=== PATIENT | female | born 1960 | race Caucasian/White ===

== ENCOUNTER 2021-04-09 12:02 | Inpatient (IN) | payer OTHER ==
[2021-04-09] MEDS ORDERED: ALBUTEROL HFA INHALER INHALATION STA (12:18)
--- NOTE | 2021-04-09 12:24 | ED ---
General Adult HPI - General Chief complaint: Shortness of Breath Stated complaint: low o2 Time Seen by Provider: 04/09/21 12:09 Source: patient, RN notes reviewed Mode of arrival: ambulatory Limitations: no limitations - History of Present Illness Initial comments: Patient is a pleasant 60-year-old female presenting to the emergency department with concerns for cold-like symptoms. Onset of symptoms was just 4 days ago. Patient complains of only mild symptoms. Patient did go to primary care physician and also oxygen reportedly was 59 and patient had purplish discoloration. Patient reportedly refused EMS transfer. Patient does have mild cough. Patient feels only minimally short of breath with cough. No chest pain. Patient states her taste feels a little bit funny this morning. Patient has not been vaccinated. Patient has mild nasal congestion. No history of chronic lung problems. Patient does have a history of smoking less than 1 pack per day for 19 years. - Related Data Home Medications Medication Instructions Recorded Confirmed Furosemide [Lasix] 40 mg PO BID 04/09/21 04/09/21 Allergies Allergy/AdvReac Type Severity Reaction Status Date / Time No Known Allergies Allergy Verified 04/09/21 14:36 Review of Systems ROS Statement: Those systems with pertinent positive or pertinent negative responses have been documented in the HPI. ROS Other: All systems not noted in ROS Statement are negative. Constitutional: Reports: fever (Yesterday) Eyes: Denies: eye pain ENT: Denies: ear pain Respiratory: Reports: as per HPI, cough Cardiovascular: Denies: chest pain Endocrine: Reports: fatigue Gastrointestinal: Denies: abdominal pain Genitourinary: Denies: dysuria Musculoskeletal: Denies: back pain Skin: Denies: rash Neurological: Denies: weakness Past Medical History History of Any Multi-Drug Resistant Organisms: None Reported Past Surgical History: Section Past Psychological History: No Psychological Hx Reported Smoking Status: Never smoker Past Alcohol Use History: None Reported Past Drug Use History: None Reported General Exam Limitations: no limitations General appearance: alert Head exam: Present: normocephalic Eye exam: Present: normal appearance ENT exam: Present: normal oropharynx Neck exam: Present: normal inspection Respiratory exam: Present: wheezes (Mild expiratory) Cardiovascular Exam: Present: regular rate, normal rhythm GI/Abdominal exam: Present: soft. Absent: tenderness Extremities exam: Present: normal inspection Neurological exam: Present: alert Psychiatric exam: Present: normal affect, normal mood Skin exam: Present: normal color, cyanosis Course Vital Signs 04/09/21 04/09/21 12:07 12:17 Temperature 98.9 F Pulse Rate 83 Respiratory 24 Rate Blood Pressure 172/88 O2 Sat by Pulse 57 L 96 Oximetry EKG Findings - EKG Comments: EKG Findings:: Normal sinus rhythm rate 85. W[place] 142. QRS 84. QT 350. QTC 416. Right axis. Normal QRS. No acute ST change. Medical Decision Making - Medical Decision Making Patient reevaluated. Patient remains hypoxic when taken off oxygen. Otherwise color has significant improved. Patient updated on results and plan. Case was discussed with Dr. Ness, covering for Ava Mari, who will admit. Line Palletizer will be consult. Patient is not a candidate for monoclonal antibody secondary to hypoxia. - Lab Data Result diagrams: 04/09/21 12:21 04/09/21 12: Lab Results 04/09/21 04/09/21 04/09/21 Range/Units 12:21 12:21 12:21 WBC 8.3 (3.8-10.6) k/uL RBC 5.74 H (3.80-5.40) m/uL Hgb 16.1 H (11.4-16.0) gm/dL Hct 51.3 H (34.0-46.0) % MCV 89.4 (80.0-100.0) fL MCH 28.1 (25.0-35.0) pg MCHC 31.4 (31.0-37.0) g/dL RDW 17.0 H (11.5-15.5) % Plt Count 128 L (150-450) k/uL MPV 9.3 Neutrophils % 82 % Lymphocytes % 10 % Monocytes % 6 % Eosinophils % 1 % Basophils % 1 % Neutrophils # 6.9 (1.3-7.7) k/uL Lymphocytes # 0.8 L (1.0-4.8) k/uL Monocytes # 0.5 (0-1.0) k/uL Eosinophils # 0.1 (0-0.7) k/uL Basophils # 0.1 (0-0.2) k/uL Hypochromasia Moderate Anisocytosis Slight PT 11.3 (9.0-12.0) sec INR 1.1 (<1.2) APTT 22.9 (22.0-30.0) sec D-Dimer 2.54 H (<0.60) mg/L FEU Sodium (137-145) mmol/L Potassium (3.5-5.1) mmol/L Chloride (98-107) mmol/L Carbon Dioxide (22-30) mmol/L Anion Gap mmol/L BUN (7-17) mg/dL Creatinine (0.52-1.04) mg/dL Est GFR (CKD-EPI)AfAm (>60 ml/min/1.73 sqM) Est GFR (CKD-EPI)NonAf (>60 ml/min/1.73 sqM) Glucose (74-99) mg/dL Plasma Lactic Acid Jacob (0.7-2.0) mmol/L Calcium (8.4-10.2) mg/dL Total Bilirubin (0.2-1.3) mg/dL AST (14-36) U/L ALT (4-34) U/L Alkaline Phosphatase (38-126) U/L Troponin I (0.000-0.034) ng/mL NT-Pro-B Natriuret Pep pg/mL Total Protein (6.3-8.2) g/dL Albumin (3.5-5.0) g/dL Coronavirus (PCR) Detected A (Not Detectd) 04/09/21 04/09/21 04/09/21 Range/Units 12:21 12: 12:21 WBC (3.8-10.6) k/uL RBC (3.80-5.40) m/uL Hgb (11.4-16.0) gm/dL Hct (34.0-46.0) % MCV (80.0-100.0) fL MCH (25.0-35.0) pg MCHC (31.0-37.0) g/dL RDW (11.5-15.5) % Plt Count (150-450) k/uL MPV Neutrophils % % Lymphocytes % % Monocytes % % Eosinophils % % Basophils % % Neutrophils # (1.3-7.7) k/uL Lymphocytes # (1.0-4.8) k/uL Monocytes # (0-1.0) k/uL Eosinophils # (0-0.7) k/uL Basophils # (0-0.2) k/uL Hypochromasia Anisocytosis PT (9.0-12.0) sec INR (<1.2) APTT (22.0-30.0) sec D-Dimer (<0.60) mg/L FEU Sodium 139 (137-145) mmol/L Potassium 4.7 (3.5-5.1) mmol/L Chloride 100 (98-107) mmol/L Carbon Dioxide 33 H (22-30) mmol/L Anion Gap 6 mmol/L BUN 21 H (7-17) mg/dL Creatinine 0.76 (0.52-1.04) mg/dL Est GFR (CKD-EPI)AfAm >90 (>60 ml/min/1.73 sqM) Est GFR (CKD-EPI)NonAf 87 (>60 ml/min/1.73 sqM) Glucose 125 H (74-99) mg/dL Plasma Lactic Acid Jacob 1.2 (0.7-2.0) mmol/L Calcium 8.2 L (8.4-10.2) mg/dL Total Bilirubin 0.6 (0.2-1.3) mg/dL AST 53 H (14-36) U/L ALT 44 H (4-34) U/L Alkaline Phosphatase 70 (38-126) U/L Troponin I 0.038 H* (0.000-0.034) ng/mL NT-Pro-B Natriuret Pep pg/mL Total Protein 7.5 (6.3-8.2) g/dL Albumin 3.8 (3.5-5.0) g/dL Coronavirus (PCR) (Not Detectd) 04/09/21 Range/Units 12:21 WBC (3.8-10.6) k/uL RBC (3.80-5.40) m/uL Hgb (11.4-16.0) gm/dL Hct (34.0-46.0) % MCV (80.0-100.0) fL MCH (25.0-35.0) pg MCHC (31.0-37.0) g/dL RDW (11.5-15.5) % Plt Count (150-450) k/uL MPV Neutrophils % % Lymphocytes % % Monocytes % % Eosinophils % % Basophils % % Neutrophils # (1.3-7.7) k/uL Lymphocytes # (1.0-4.8) k/uL Monocytes # (0-1.0) k/uL Eosinophils # (0-0.7) k/uL Basophils # (0-0.2) k/uL Hypochromasia Anisocytosis PT (9.0-12.0) sec INR (<1.2) APTT (22.0-30.0) sec D-Dimer (<0.60) mg/L FEU Sodium (137-145) mmol/L Potassium (3.5-5.1) mmol/L Chloride (98-107) mmol/L Carbon Dioxide (22-30) mmol/L Anion Gap mmol/L BUN (7-17) mg/dL Creatinine (0.52-1.04) mg/dL Est GFR (CKD-EPI)AfAm (>60 ml/min/1.73 sqM) Est GFR (CKD-EPI)NonAf (>60 ml/min/1.73 sqM) Glucose (74-99) mg/dL Plasma Lactic Acid Jacob (0.7-2.0) mmol/L Calcium (8.4-10.2) mg/dL Total Bilirubin (0.2-1.3) mg/dL AST (14-36) U/L ALT (4-34) U/L Alkaline Phosphatase (38-126) U/L Troponin I (0.000-0.034) ng/mL NT-Pro-B Natriuret Pep 4920 pg/mL Total Protein (6.3-8.2) g/dL Albumin (3.5-5.0) g/dL Coronavirus (PCR) (Not Detectd) - Radiology Data Radiology results: report reviewed (Computed tomography scan limited. No pulmonary embolism.), image reviewed (Multifocal opacities. Cardiomegaly.) Critical Care Time Critical Care Time: Yes Total Critical Care Time: 32 Disposition Clinical Impression: COVID-19, Hypoxia Disposition: ADMITTED IP TO THIS HOSP Is patient prescribed a controlled substance at d/c from ED?: No Referrals: Ava Moore MD [Primary Care Provider] - 1-2 days Decision Time: 15:40
[2021-04-09 12:43] LABS: Anisocytosis Slight; Basophils # (A) 0.1 k/uL (0-0.2); Basophils % (A) 1 %; Eosinophils # (A) 0.1 k/uL (0-0.7); Eosinophils % (A) 1 %; HCT 51.3 % (34.0-46.0); HGB 16.1 gm/dL (11.4-16.0); Hypochromasia Moderate; Lymphocytes # (A) 0.8 k/uL (1.0-4.8); Lymphocytes % (A) 10 %; MCH 28.1 pg (25.0-35.0); MCHC 31.4 g/dL (31.0-37.0); MCV 89.4 fL (80.0-100.0); Mean Platelet Volume 9.3; Monocytes # (A) 0.5 k/uL (0-1.0); Monocytes % (A) 6 %; Neutrophils # (A) 6.9 k/uL (1.3-7.7); Neutrophils % (A) 82 %; Platelet Count 128 k/uL (150-450); RBC 5.74 m/uL (3.80-5.40); WBC 8.3 k/uL (3.8-10.6)
[2021-04-09 12:53] LABS: ALT 44 U/L (4-34); AST 53 U/L (14-36); African American GFR (CKD) >90 (>60 ml/min/1.73 sqM); Albumin 3.8 g/dL (3.5-5.0); Alkaline Phosphatase 70 U/L (38-126); Anion Gap 6 mmol/L; Blood Urea Nitrogen 21 mg/dL (7-17); Calcium 8.2 mg/dL (8.4-10.2); Carbon Dioxide 33 mmol/L (22-30); Chloride 100 mmol/L (98-107); Glucose 125 mg/dL (74-99); Non-African American GFR(CKD) 87 (>60 ml/min/1.73 sqM); Potassium 4.7 mmol/L (3.5-5.1); Sodium 139 mmol/L (137-145); Total Bilirubin 0.6 mg/dL (0.2-1.3); Total Protein 7.5 g/dL (6.3-8.2)
--- NOTE | 2021-04-09 12:53 | XR ---
EXAMINATION TYPE: XR chest 1V portable DATE OF EXAM: 04/09/2021 COMPARISON: NONE HISTORY: Fever, SOB, Cough, and chest pressure. TECHNIQUE: Single AP portable upright view of the chest is obtained. FINDINGS: There are bilateral multifocal mid to lower lung opacities . The cardiac silhouette size is enlarged. Overlying EKG leads. The osseous structures are intact. IMPRESSION: Cardiomegaly with bilateral multifocal mid to lower lung opacities. Correlate to exclude covid-19 infection in current environment.
[2021-04-09 13:01] LABS: INR 1.1 (<1.2); Partial Thromboplastin Time 22.9 sec (22.0-30.0); Prothrombin Time 11.3 sec (9.0-12.0)
[2021-04-09] MEDS: DEXAMETHASONE SOD PHOSPHATE 10 MG/ML 1 ML VIAL IVP SCH (13:38)
--- NOTE | 2021-04-09 14:41 | CT ---
EXAMINATION TYPE: CT angio chest DATE OF EXAM: 04/09/2021 COMPARISON: Chest x-ray earlier today HISTORY: Dyspnea. CT DLP: 846.8 mGycm. Automated Exposure Control for Dose Reduction was Utilized. CONTRAST: CTA scan of the thorax is performed with IV Contrast, patient injected with 100 mL of Isovue 370, pul monary embolism protocol. MIP Images are created on CT scanner and reviewed. FINDINGS: Exam is suboptimal as there is significant respiratory motion artifact degradation. This li mits evaluation particularly for subcentimeter nodules LUNGS: Tiny right pleural effusion. Associated posterior basilar compressive atelectasis is present. An atelectasis left lower lobe. There is focal masslike consolidation posteriorly in the mid lung lik vicente superior aspect right lower lobe. Additional few small foci of groundglass opacity scattered thro ughout the lungs bilaterally. There is 1.4 cm area of nodularity or likely nodular consolidation righ t upper lobectomy 38 for reference.. MEDIASTINUM: There is markedly suboptimal study due to large body habitus and inability to hold breat h. There is contrast filling of the aorta without aneurysm or dissection. Most dense contrast in SVC. No central pulmonary embolism. Cannot exclude smaller segmental and subsegmental pulmonary emboli o n this exam. Enlarged right and left pulmonary arteries are present. There are enlarged bilateral hil ar lymph nodes. There are prominent but subcentimeter prevascular lymph nodes. There is slightly enla rged 1.9 x 1.3 cm pericarinal lymph node axial image 45. Cardiomegaly is seen with moderate right gre ater than left biventricular dilatation and moderate to severe right greater than left biatrial dilat ation. No pericardial effusion. OTHER: No additional significant abnormality is seen. IMPRESSION: Suboptimal study without central pulmonary embolism, cannot exclude smaller segmental and subsegmental PE on this exam. Cardiomegaly with tiny right pleural effusion. Underlying pulmonary hy pertension. Some faint multifocal groundglass opacities and organizing consolidations greatest mortgage collector ior aspect right mid lung suspicious for covid-19 infection. Reactive thoracic adenopathy thought pr esent. Follow-up study is advised after treatment to rule out underlying pulmonary nodules.
[2021-04-09] MEDS ORDERED: NALOXONE 0.4 MG/ML 1 ML VIAL IV PRN (15:40)
[2021-04-09] MEDS ORDERED: ACETAMINOPHEN TAB 325 MG TAB PO PRN (15:40)
[2021-04-09] MEDS ORDERED: SODIUM CHLORIDE 0.9% 1,000 ML IV SCH (15:45)
--- NOTE | 2021-04-09 17:10 | P.CNPUL ---
History of Present Illness Consult date: 04/09/21 Reason for consult: dyspnea, hypoxemia History of present illness: 60-year-old morbidly obese female patient, with obvious features of obstructive sleep apnea and obesity hypoventilation syndrome and chronic lower extremity edema and possibly some chronic hypoxemia. The patient started getting symptoms of flulike illness approximately 5 days ago. She apparently got exposed to people during Thanksgiving dinner was she visited her brother and ultimately she got sick and she became more short of breath and congested and had increased cough and she came into the emergency with a pulse ox of 60%. At that point, the patient was placed on 100% nonrebreather facemask. Her current pulse ox is around 93%. She short of breath even while talking and she is unable to speak up. Since. Her initial workup showed a chest x-ray that showed cardiomegaly and bilateral pulmonary infiltrates. CT angiogram showed no evidence of any pulmonary embolism. It was a suboptimal study. There was some groundglass changes bilaterally and there was evidence of bilateral pleural effusion and cardiomegaly and I do raises the concern for CHF knowing that the patient's proBNP level was quite elevated. The patient takes Lasix on and up on outpatient basis. Note that his serum bicarb is 33 consistent with chronic hypercapnic respiratory failure and chronic CO2 retention. Renal function stable. Troponin was at 0.03. ProBNP level was 4920, COVID 19 testing was positive through a nasal swab by PCR. D-dimer was at 2.5. The white cell count was at 8.3 with a hemoglobin of 16 and the patient had some lymphopenia. She typically does not follow-up with a physician. She does see a holistic person. She doesn't take medication on a regular basis. She has seen Shayy Newell in the past, medical APPLICATIONS PROGRAMMER ANALYST, and the patient is a smoker. She has not been vaccinated. She denies having any chronic form of lung disease or disorder. Review of Systems Constitutional: Reports daytime sleepiness, Reports fatigue, Reports fever, Reports poor appetite, Reports weight gain Eyes: denies as per HPI, denies blurred vision, denies bulging eye, denies decreased vision, denies diplopia, denies discharge, denies dry eye, denies irritation, denies itching, denies pain, denies photophobia, denies loss of peripheral vision, denies loss of vision, denies tunnel vision/blind spots Ears: deny: decreased hearing, ear discharge, earache, tinnitus Ears, nose, mouth and throat: Reports as per HPI Breasts: absent: as per HPI, change in shape, gynecomastia, masses, nipple discharge, pain, skin changes, swelling Cardiovascular: Reports decreased exercise tolerance, Reports dyspnea on exertion, Reports leg edema Respiratory: Reports cough, Reports cough with sputum, Reports dyspnea Gastrointestinal: Reports as per HPI Genitourinary: Reports as per HPI Menstruation: Reports as per HPI Musculoskeletal: Reports as per HPI Musculoskeletal: bilateral: ankle swelling, absent: ankle pain, ankle stiffness Integumentary: Reports as per HPI Neurological: Reports as per HPI, Reports weakness Psychiatric: Reports as per HPI Endocrine: Reports as per HPI Hematologic/Lymphatic: Reports as per HPI Allergic/Immunologic: Reports as per HPI Past Medical History History of Any Multi-Drug Resistant Organisms: None Reported Past Surgical History: Section Past Psychological History: No Psychological Hx Reported Smoking Status: Never smoker Past Alcohol Use History: None Reported Past Drug Use History: None Reported Medications and Allergies Home Medications Medication Instructions Recorded Confirmed Type Furosemide [Lasix] 40 mg PO BID 04/09/21 04/09/21 History Allergies Allergy/AdvReac Type Severity Reaction Status Date / Time No Known Allergies Allergy Verified 04/09/21 14:36 Physical Exam Vitals: Vital Signs Temp Pulse Resp BP Pulse Ox 04/09/21 15:30 76 20 166/97 97 04/09/21 14:30 80 22 137/99 96 04/09/21 13:30 83 22 139/67 95 04/09/21 13:00 84 22 180/93 94 L 04/09/21 12:30 83 22 173/57 94 L 04/09/21 12:17 96 04/09/21 12:07 98.9 F 83 24 172/88 57 L Intake and Output 04/09/21 04/09/21 04/09/21 06:59 14:59 22:59 Other: Weight 192.777 kg General appearance: alert, and the patient is morbidly obese and she carries a BMI of 73.0. Currently she is on 100% nonrebreather facemask. Her breathing is mildly labored. Pulse ox is around 93%. Head exam: Present: normocephalic Eye exam: Present: normal appearance ENT exam: Present: normal oropharynx, the patient has significant crowding of the posterior oropharynx and the patient has a Mallampati class IV Neck exam: Present: normal inspection Respiratory exam: Present: wheezes (Mild expiratory), diminished breath sounds and the patient has crackles in the mid and lower lungs bilaterally Cardiovascular Exam: Present: regular rate, normal rhythm GI/Abdominal exam: Present: soft. Absent: tenderness, and the patient is morbidly obese to the point where the organs cannot be accurately palpated. No direct tenderness. No rebound tenderness. No guarding Extremities exam: Present: normal inspection, the patient has chronic edema lower extremities bilaterally. No open wounds or ulcerations. Neurological exam: Present: alert Psychiatric exam: Present: normal affect, normal mood Skin exam: Present: normal color, cyanosis Results - Laboratory Findings CBC and BMP: 04/09/21 12:21 04/09/21 12:21 PT/INR, D-dimer PT 11.3 sec (9.0-12.0) 04/09/21 12: INR 1.1 (<1.2) 04/09/21 12:21 D-Dimer 2.54 mg/L FEU (<0.60) H 04/09/21 12:21 Abnormal lab findings: Abnormal Labs 04/09/21 04/09/21 04/09/21 12:21 12:21 12:21 RBC 5.74 H Hgb 16.1 H Hct 51.3 H RDW 17.0 H Plt Count 128 L Lymphocytes # 0.8 L D-Dimer 2.54 H Carbon Dioxide BUN Glucose Calcium AST ALT Troponin I Coronavirus (PCR) Detected A 04/09/21 04/09/21 12:21 12:21 RBC Hgb Hct RDW Plt Count Lymphocytes # D-Dimer Carbon Dioxide 33 H BUN 21 H Glucose 125 H Calcium 8.2 L AST 53 H ALT 44 H Troponin I 0.038 H* Coronavirus (PCR) - Diagnostic Findings Chest x-ray: image reviewed Assessment and Plan Plan: 1 acute COVID 19 related pneumonia. Symptoms started approximately 5 days ago a nd the patient is presenting with significant shortness of breath and hypoxemia and the patient is currently on 100% on a beta facemasks 2 acute hypoxic respiratory failure secondary to above currently on 100% on a beta facemasks 3 suspect chronic hypoxemia and chronic hypoxemic respiratory failure probably related to obesity hypoventilation syndrome and obstructive sleep apnea. The patient carries a BMI of 73. She has chronic metabolic alkalosis and as such there may be a component of obesity hypoventilation syndrome/pickwickian syndrome. 4 metabolic alkalosis, likely chronic 5 chronic lower extremity edema 6 morbid obesity with a BMI of 73 7 elevated troponin without any acute ischemic changes. No history of any coronary artery disease. He seems to be further followed. 8 suspect CHF with elevated proBNP and small bilateral pleural effusions in addition to cardiomegaly 9 chronic lower extremity edema Plan Admit this patient to the hospital and keep her on the 100% facemask and titrate oxygen flow to maintain a saturation above 90% Start the patient on Decadron 6 mg IV every 24 hours Start the patient on Lasix 40 mg IV every 24 hours Plan the patient on Lovenox 40 mg subcu every 24 hours Check inflammatory markers including LDH, CRP and pro calcitonin level Obtain a baseline blood gas on 100% nonrebreather facemask and this will be useful also to assess her underlying acid base status Follow-up troponin levels and obtain a cardiology consultation Obtain a baseline echocardiogram We'll continue to follow make further recommendations based on her progress.
[2021-04-09] MEDS: ENOXAPARIN 40 MG/0.4 ML SYRINGE SQ SCH (17:30)
[2021-04-09] MEDS: FUROSEMIDE 10 MG/ML 4 ML VIAL IV SCH (17:30)
[2021-04-09] MEDS: ASCORBIC ACID 500 MG TAB PO SCH (17:31)
[2021-04-09] MEDS: ZINC SULFATE 220 MG CAP PO SCH (17:31)
[2021-04-09] MEDS: CHOLECALCIFEROL 25 MCG (1000 IU) TABLET PO SCH (17:31)
[2021-04-09 18:43] LABS: ABG Base Excess 10.1 mmol/L; ABG HCO3 37 mmol/L (21-25); ABG Oxygen Saturation 98.7 % (94-97); ABG PH 7.26 (7.35-7.45); ABG PO2 145 mmHg (83-108); ABG TCO2 40 mmol/L (19-24); Allen Test Performed? Yes
[2021-04-09 18:48] LABS: ABG PCO2 82 mmHg (35-45)
[2021-04-09 20:58] LABS: C Reactive Protein 4.3 mg/dL (<1.0)
--- NOTE | 2021-04-09 22:52 | P.HPIM ---
History of Present Illness H&P Date: 04/09/21 Chief Complaint: Shortness of breath Patient is a 60-year-old with a known history of morbid obesity and obesity hypoventilation and chronic lower extremity edema presents to ER with the complaints of worsening shortness of breath for the past 5 days. Patient started having cold-like symptoms. Due to worsening symptoms patient went to see her PCP and was found to be hypoxic with pulse ox. 50 % and also had purple discoloration. Patient refused EMS transfer. Otherwise patient has been afebrile. No complaints of chest pain. Does have cough without sputum production. Patient otherwise denied any nausea or vomiting. Her taste felt different this morning. On admission blood pressure 172/88 pulse 83 respirations 24 and pulse ox 97% on room air. Patient was awake and alert and oriented. Patient was placed on her person nontender with a and pulse ox went up to 96%. Chest x-ray showed cardiomegaly with bilateral multifocal mild to lower lung opacities. Correlate exclude COVID-[address] angiogram of the chest is suboptimal study without central pulmonary embolism. Laboratory data showed WBC 8.3 hemoglobin 16.1 and platelets 128 Lymphocytes 0.8 and d-dimer is 2.54 ABG showed pH of 7.26 pCO2 82 pO2 145 Sodium 139 potassium 4.7 chloride 100 bicarb is 33 BUN 21 and creatinine 0.76 AST 50 ALT 44 alk phos 79 and troponin 0.038 and 0.032 ProBNP 4924 and COVID-19 PCR detected. Pro-calcitonin level is 0.18 Review of Systems Constitutional: Patient denies any fever or chills . Patient does have generali zed weakness and fatigue.. Abdomen: Patient denied nausea vomiting and diarrhea and abdominal pain. Cardiovascular: Patient denies any chest pain or short of breath no palpitations. Respiratory: Patient does have cough without sputum production and shortness of breath Neurologic: Patient denied any numbness or tingling headache. Musculoskeletal: Patient denies any complaints of joint swelling or deformity. Skin: Negative Psychiatric: Negative Endocrine: No heat or cold intolerance. No recent weight gain. Genitourinary: No dysuria or hematuria. All other 14 point ROS negative except the above Past Medical History Past Medical History: No Reported History History of Any Multi-Drug Resistant Organisms: None Reported Past Surgical History: Section Past Anesthesia/Blood Transfusion Reactions: No Reported Reaction Past Psychological History: No Psychological Hx Reported Smoking Status: Former smoker Past Alcohol Use History: None Reported Additional Past Alcohol Use History / Comment(s): quite smoking at age 36 Past Drug Use History: None Reported - Past Family History Father Family Medical History: Cancer, COPD Mother Family Medical History: Cancer, COPD Medications and Allergies Home Medications Medication Instructions Recorded Confirmed Type Furosemide [Lasix] 40 mg PO BID 04/09/21 04/09/21 History Allergies Allergy/AdvReac Type Severity Reaction Status Date / Time No Known Allergies Allergy Verified 04/09/21 14:36 Physical Exam Vitals: Vital Signs Temp Pulse Pulse Resp BP BP Pulse Ox 04/09/21 21:20 97.7 F 78 20 132/71 93 L 04/09/21 20:57 95 04/09/21 17:00 73 16 160/95 94 L 04/09/21 15:30 76 20 166/97 97 04/09/21 14:30 80 22 137/99 96 04/09/21 13:30 83 22 139/67 95 04/09/21 13:00 84 22 180/93 94 L 04/09/21 12:30 83 22 173/57 94 L 04/09/21 12:17 96 04/09/21 12:07 98.9 F 83 24 172/88 57 L Intake and Output 04/09/21 04/09/21 04/09/21 06:59 14:59 22:59 Other: Weight 192.777 kg 192.777 kg PHYSICAL EXAMINATION: Patient is lying in the bed comfortably, no acute distress, awake alert and oriented. On nonrebreather now.. HEENT: Normocephalic. Neck is supple. Pupils reactive. Nostrils clear. Oral cavity is moist. Neck reveals no JVD, carotid bruits, or thyromegaly. CHEST EXAMINATION: Trachea is central. Symmetrical expansion. Bilateral diminished air entry and scattered coarse sounds.. CARDIAC: Normal S1, S2 with no gallops. No murmurs ABDOMEN: Soft. Bowel sounds normal. No organomegaly. No abdominal bruits. Extremities: Bilateral lower extremity trace edema. No clubbing or cyanosis Neurologically awake, alert, oriented x3 with well-coordinated movements. No focal deficits noted Skin: No rash or skin lesions. Psychiatric: Coperative. Nonsuicidal Musculoskeletal: No joint swelling or deformity. Normal range of motion. Results CBC & Chem 7: 04/09/21 12:21 04/09/21 12: Labs: Abnormal Lab Results - Last 24 Hours (Table) 04/09/21 04/09/21 04/09/21 Range/Units 12: 12: 12: RBC 5.74 H (3.80-5.40) m/uL Hgb 16.1 H (11.4-16.0) gm/dL Hct 51.3 H (34.0-46.0) % RDW 17.0 H (11.5-15.5) % Plt Count 128 L (150-450) k/uL Lymphocytes # 0.8 L (1.0-4.8) k/uL D-Dimer 2.54 H (<0.60) mg/L FEU ABG pH (7.35-7.45) ABG pCO2 (35-45) mmHg ABG pO2 (83-108) mmHg ABG HCO3 (21-25) mmol/L ABG Total CO2 (19-24) mmol/L ABG O2 Saturation (94-97) % Carbon Dioxide (22-30) mmol/L BUN (7-17) mg/dL Glucose (74-99) mg/dL Calcium (8.4-10.2) mg/dL AST (14-36) U/L ALT (4-34) U/L Lactate Dehydrogenase (313-618) U/L Troponin I (0.000-0.034) ng/mL C-Reactive Protein (<1.0) mg/dL Coronavirus (PCR) Detected A (Not Detectd) 04/09/21 04/09/21 04/09/21 Range/Units : 12: 18:32 RBC (3.80-5.40) m/uL Hgb (11.4-16.0) gm/dL Hct (34.0-46.0) % RDW (11.5-15.5) % Plt Count (150-450) k/uL Lymphocytes # (1.0-4.8) k/uL D-Dimer (<0.60) mg/L FEU ABG pH 7.26 L (7.35-7.45) ABG pCO2 82 H* (35-45) mmHg ABG pO2 145 H (83-108) mmHg ABG HCO3 37 H (21-25) mmol/L ABG Total CO2 40 H (19-24) mmol/L ABG O2 Saturation 98.7 H (94-97) % Carbon Dioxide 33 H (22-30) mmol/L BUN 21 H (7-17) mg/dL Glucose 125 H (74-99) mg/dL Calcium 8.2 L (8.4-10.2) mg/dL AST 53 H (14-36) U/L ALT 44 H (4-34) U/L Lactate Dehydrogenase (313-618) U/L Troponin I 0.038 H* (0.000-0.034) ng/mL C-Reactive Protein (<1.0) mg/dL Coronavirus (PCR) (Not Detectd) 04/09/21 Range/Units 20:08 RBC (3.80-5.40) m/uL Hgb (11.4-16.0) gm/dL Hct (34.0-46.0) % RDW (11.5-15.5) % Plt Count (150-450) k/uL Lymphocytes # (1.0-4.8) k/uL D-Dimer (<0.60) mg/L FEU ABG pH (7.35-7.45) ABG pCO2 (35-45) mmHg ABG pO2 (83-108) mmHg ABG HCO3 (21-25) mmol/L ABG Total CO2 (19-24) mmol/L ABG O2 Saturation (94-97) % Carbon Dioxide (22-30) mmol/L BUN (7-17) mg/dL Glucose (74-99) mg/dL Calcium (8.4-10.2) mg/dL AST (14-36) U/L ALT (4-34) U/L Lactate Dehydrogenase 858 H (313-618) U/L Troponin I (0.000-0.034) ng/mL C-Reactive Protein 4.3 H (<1.0) mg/dL Coronavirus (PCR) (Not Detectd) Thrombosis Risk Factor Assmnt - DVT/VTE Prophylaxis DVT/VTE Prophylaxis: Pharmacologic Prophylaxis ordered - Choose All That Apply Each Factor Represents 1 point: Age 41-60 years, Obesity (BMI >25), Swollen legs (current), Varicose veins Other Risk Factors: No Other congenital or acquired thrombophilia - If yes, enter type in comment: No Thrombosis Risk Factor Assessment Total Risk Factor Score: 4 Thrombosis Risk Factor Assessment Level: Moderate Risk Assessment and Plan Assessment: Acute hypoxic respiratory failure secondary to COVID-19 pneumonia requiring nonrebreather on admission. Pulse ox was 57% on room air on admission. Acute COVID-19 pneumonia. Symptoms for the past 5 days. Patient is not vaccinated. Elevated troponin level likely due to demand mismatch. Morbid obesity BMI 17.3 Obesity hypoventilation syndrome with suspected chronic hypoxemia. Currently not on oxygen at home. Chronic bilateral lower extremity edema DVT prophylaxis. Plan: Patient will be continued on oxygen supplementation currently on nonrebreather. Continue with the Decadron, Lovenox and multivitamins. Patient was given a dose of IV Lasix. Pulmonary is on board. Cardiology was consulted due to elevated troponin level. 2-D echo cardiac was ordered. Currently patient denied any chest pain. Continue to follow closely and prognosis is guarded at this time. Time with Patient: Greater than 30
[2021-04-10 06:03] LABS: Glucose,Whole Blood 123 mg/dL (75-99)
[2021-04-10] MEDS: ASCORBIC ACID 500 MG TAB PO SCH ×2 (08:40→21:06)
[2021-04-10] MEDS: DEXAMETHASONE SOD PHOSPHATE 10 MG/ML 1 ML VIAL IVP SCH (08:40)
[2021-04-10] MEDS: ZINC SULFATE 220 MG CAP PO SCH (08:41)
[2021-04-10] MEDS: ENOXAPARIN 40 MG/0.4 ML SYRINGE SQ SCH (08:41)
[2021-04-10] MEDS: CHOLECALCIFEROL 25 MCG (1000 IU) TABLET PO SCH (08:41)
[2021-04-10] MEDS: FUROSEMIDE 10 MG/ML 4 ML VIAL IV SCH (08:42)
--- NOTE | 2021-04-10 10:31 | P.CRDCN ---
History of Present Illness Consult date: 04/10/21 History of present illness: CHIEF COMPLAINT: Abnormal troponins HISTORY OF PRESENT ILLNESS: This is a 60-year-old female with a past medical history significant for lower extremity edema, obstructive sleep apnea, and morbid obesity. She does not follow with a gas charger. We have been asked to see the patient in consultation for abnormal troponins. The patient came to the hospital with a chief complaint of SOB. She was apparently exposed to people with Covid during Thanksgiving. Patient was hypoxic upon presentation to the hospital. She was found to be positive for Covid. She is unvaccinated. Patient was also found to be in congestive heart failure and was started on IV Lasix 40 mg IV daily per pulmonary. She is currently on 6 L nasal cannula with oxygen saturations greater than 92%. Blood pressure 132/72. Telemetry reveals sinus mechanism with heart rate in the 70s. She is afebrile. DIAGNOSTICS: EKG reveals sinus mechanism with no signs of acute ischemia Chest xray cardiomegaly with bilateral multifocal mid to lower lung opacities. Correlate to exclude COVID-19 infection and current environment. Chest CTA suboptimal study without central pulmonary was in. Cannot exclude smaller segmental and subsegmental PE on this exam. Cardiomegaly with tiny right pleural effusion. Underlying pulmonary hypertension. Some faint multifocal groundglass opacities and organizing consolidations greatest posterior aspect right mid lung suspicious for COVID-19 infection. Reactive thoracic adenopathy thought present. Laboratory data: WBC 8.3. Hemoglobin 16.1. Platelet count 128. D-dimer 2.54. Sodium 139. Potassium 4.7. BUN 21. Creatinine 0.76. Troponin 0.03. 0.032. ProBNP 4920. Current home cardiac medications include Lasix 40 mg twice a day REVIEW OF SYSTEMS: Thorough review of systems not completed secondary to limited evaluation/examination due to Covid19 PHYSICAL EXAM: Thorough physical exam not completed secondary to limited evaluation/examination due to Covid19 ASSESSMENT: Covid 19 Acute hypoxic respiratory failure Abnormal troponins, secondary to type II WA secondary to hypoxia secondary to Covid Acute congestive heart failure, type unknown, echo pending Obstructive sleep apnea Morbid obesity PLAN: Obtain 2D echo to assess cardiac structure and function Continue IV lasix Accurate I&O Daily weights Monitor kidney function Pulmonary following Further recommendations pending patient course Nurse practitioner note has been reviewed by physician. Signing provider agrees with the documented findings, assessment, and plan of care. Past Medical History Past Medical History: No Reported History History of Any Multi-Drug Resistant Organisms: None Reported Past Surgical History: Section Past Anesthesia/Blood Transfusion Reactions: No Reported Reaction Past Psychological History: No Psychological Hx Reported Smoking Status: Former smoker Past Alcohol Use History: None Reported Additional Past Alcohol Use History / Comment(s): quite smoking at age 36 Past Drug Use History: None Reported - Past Family History Father Family Medical History: Cancer, COPD Mother Family Medical History: Cancer, COPD Medications and Allergies Home Medications Medication Instructions Recorded Confirmed Type Furosemide [Lasix] 40 mg PO BID 04/09/21 04/09/21 History Allergies Allergy/AdvReac Type Severity Reaction Status Date / Time No Known Allergies Allergy Verified 04/09/21 14:36 Physical Exam Vitals: Vital Signs Temp Pulse Pulse Resp BP BP Pulse Ox 04/10/21 08:13 97.5 F L 77 20 132/72 92 L 04/10/21 06:00 74 20 92 L 04/10/21 04:00 98.0 F 76 20 153/88 92 L 04/10/21 01:00 70 20 92 L 04/10/21 00:00 97.8 F 77 20 138/70 89 L 04/09/21 21:20 97.7 F 78 20 132/71 93 L 04/09/21 20:57 95 04/09/21 17:00 73 16 160/95 94 L 04/09/21 15:30 76 20 166/97 97 04/09/21 14:30 80 22 137/99 96 04/09/21 13:30 83 22 139/67 95 04/09/21 13:00 84 22 180/93 94 L 04/09/21 12:30 83 22 173/57 94 L 04/09/21 12:17 96 04/09/21 12:07 98.9 F 83 24 172/88 57 L Intake and Output 04/09/21 04/10/21 04/10/21 22:59 06:59 14:59 Intake Total 20 10 240 Balance 20 10 240 Intake: IV 20 10 Invasive Line 1 10 10 Invasive Line 2 10 Oral 240 Other: Voiding Method Toilet Toilet # Voids 2 1 Weight 192.777 kg 191 kg Results 04/09/21 12:21 04/09/21 12:21 Cardiac Enzymes 04/09/21 04/09/21 04/09/21 Range/Units 12:21 12:21 20:08 AST 53 H (14-36) U/L Lactate Dehydrogenase 858 H (313-618) U/L Troponin I 0.038 H* (0.000-0.034) ng/mL 04/09/21 Range/Units 20:08 AST (14-36) U/L Lactate Dehydrogenase (313-618) U/L Troponin I 0.032 (0.000-0.034) ng/mL Coagulation 04/09/21 Range/Units 12: PT 11.3 (9.0-12.0) sec APTT 22.9 (22.0-30.0) sec CBC 04/09/21 Range/Units 12: WBC 8.3 (3.8-10.6) k/uL RBC 5.74 H (3.80-5.40) m/uL Hgb 16.1 H (11.4-16.0) gm/dL Hct 51.3 H (34.0-46.0) % Plt Count 128 L (150-450) k/uL Comprehensive Metabolic Panel 04/09/21 Range/Units 12:21 Sodium 139 (137-145) mmol/L Potassium 4.7 (3.5-5.1) mmol/L Chloride 100 (98-107) mmol/L Carbon Dioxide 33 H (22-30) mmol/L BUN 21 H (7-17) mg/dL Creatinine 0.76 (0.52-1.04) mg/dL Glucose 125 H (74-99) mg/dL Calcium 8.2 L (8.4-10.2) mg/dL AST 53 H (14-36) U/L ALT 44 H (4-34) U/L Alkaline Phosphatase 70 (38-126) U/L Total Protein 7.5 (6.3-8.2) g/dL Albumin 3.8 (3.5-5.0) g/dL Current Medications Generic Name Dose Route Start Last Admin Trade Name Freq PRN Reason Stop Dose Admin Acetaminophen 650 mg 04/09/21 15:40 Acetaminophen Tab 325 Mg Tab PO Q6HR PRN Mild Pain or Fever > 100.5 Ascorbic Acid 500 mg 04/09/21 21:00 04/10/21 08:40 Ascorbic Acid 500 Mg Tab PO 500 mg BID BENJY Administration Cholecalciferol 100 mcg 04/09/21 15:45 04/10/21 08:41 Cholecalciferol 25 Mcg (1000 Iu) Tablet PO 100 mcg DAILY BENJY Administration Dexamethasone Sodium Phosphate 6 mg 04/09/21 12:45 04/10/21 08:40 Dexamethasone Sod Phosphate 10 Mg/Ml 1 Ml Vial IVP 6 mg DAILY BENJY Administration Enoxaparin Sodium 40 mg 04/09/21 17:15 04/10/21 08:41 Enoxaparin 40 Mg/0.4 Ml Syringe SQ 40 mg DAILY BENJY Administration Furosemide 40 mg 04/09/21 17:15 04/10/21 08:42 Furosemide 10 Mg/Ml 4 Ml Vial IV 40 mg DAILY BENJY Administration Naloxone HCl 0.2 mg 04/09/21 15:40 Naloxone 0.4 Mg/Ml 1 Ml Vial IV Q2M PRN Opioid Reversal Zinc Sulfate 220 mg 04/09/21 15:45 04/10/21 08:41 Zinc Sulfate 220 Mg Cap PO 220 mg DAILY BENJY Administration Intake and Output 04/09/21 04/10/21 04/10/21 22:59 06:59 14:59 Intake Total 20 10 240 Balance 20 10 240 Intake: IV 20 10 Invasive Line 1 10 10 Invasive Line 2 10 Oral 240 Other: Voiding Method Toilet Toilet # Voids 2 1 Weight 192.777 kg 191 kg 04/09/21 12:21 04/09/21 12:21
--- NOTE | 2021-04-10 11:00 | ECHOF ---
Referral Reason:dyspnea MEASUREMENTS -------- HEIGHT: 162.6 cm WEIGHT: 191.0 kg BP: RVIDd: 2.7 cm (< 3.3) IVSd: 1.3 cm (0.6 - 1.1) LVIDd: 4.6 cm (3.9 - 5.3) LVPWd: 1.3 cm (0.6 - 1.1) IVSs: 1.9 cm LVIDs: 2.7 cm LVPWs: 2.0 cm RAP: 5.00 mmHg RVSP: 8.59 mmHg FINDINGS -------- This was a technically difficult study with suboptimal views. Limited Study No Apicals The left ventricular size is normal. There is mild concentric left ventricular hypertrophy. Overa ll left ventricular systolic function is low-normal with, an EF between 50 - 55 %. The right ventricle is normal in size. The left atrium was not well visualized. The right atrium was not well visualized. Lumason used The aortic valve was not well visualized. The mitral valve was not well visualized. The tricuspid valve was not well visualized. The pulmonic valve was not well visualized. IVC Not well visulized. There is no pericardial effusion. CONCLUSIONS -------- 1. No Apicals 2. The left ventricular size is normal. 3. There is mild concentric left ventricular hypertrophy. 4. Overall left ventricular systolic function is low-normal with, an EF between 50 - 55 %. 5. The right ventricle is normal in size. 6. There is no pericardial effusion. INVESTIGATOR OPERATOR: Shayy Holguin RDCS
[2021-04-10 11:14] LABS: Chloride 97 mmol/L (98-107)
[2021-04-10 11:18] LABS: African American GFR (CKD) >90 (>60 ml/min/1.73 sqM); Anion Gap 5 mmol/L; Blood Urea Nitrogen 23 mg/dL (7-17); C Reactive Protein 4.5 mg/dL (<1.0); Calcium 7.8 mg/dL (8.4-10.2); Carbon Dioxide 38 mmol/L (22-30); Glucose 124 mg/dL (74-99); LDH 761 U/L (313-618); Non-African American GFR(CKD) >90 (>60 ml/min/1.73 sqM); Potassium 4.6 mmol/L (3.5-5.1); Sodium 140 mmol/L (137-145)
[2021-04-10 12:12] LABS: Glucose,Whole Blood 118 mg/dL (75-99)
[2021-04-10 12:20] LABS: Anisocytosis Slight; Basophils # (A) 0.1 k/uL (0-0.2); Basophils % (A) 1 %; Eosinophils % (A) 0 %; HCT 51.1 % (34.0-46.0); HGB 15.6 gm/dL (11.4-16.0); Hypochromasia Moderate; Lymphocytes # (A) 0.7 k/uL (1.0-4.8); Lymphocytes % (A) 8 %; MCH 27.7 pg (25.0-35.0); MCHC 30.5 g/dL (31.0-37.0); Mean Platelet Volume 10.1; Monocytes # (A) 0.4 k/uL (0-1.0); Monocytes % (A) 5 %; Neutrophils % (A) 85 %; Platelet Count 110 k/uL (150-450); RBC 5.61 m/uL (3.80-5.40); RDW 16.7 % (11.5-15.5); WBC 8.2 k/uL (3.8-10.6)
[2021-04-10 14:08] LABS: Polychromasia Present
--- NOTE | 2021-04-10 15:55 | P.PN ---
Subjective Progress Note Date: 04/10/21 60-year-old morbidly obese female patient, with obvious features of obstructive sleep apnea and obesity hypoventilation syndrome and chronic lower extremity edema and possibly some chronic hypoxemia. The patient started getting symptoms of flulike illness approximately 5 days ago. She apparently got exposed to people during Thanksgiving dinner was she visited her brother and ultimately she got sick and she became more short of breath and congested and had increased cough and she came into the emergency with a pulse ox of 60%. At that point, the patient was placed on 100% nonrebreather facemask. Her current pulse ox is around 93%. She short of breath even while talking and she is unable to speak up. Since. Her initial workup showed a chest x-ray that showed cardiomegaly and bilateral pulmonary infiltrates. CT angiogram showed no evidence of any pulmonary embolism. It was a suboptimal study. There was some groundglass changes bilaterally and there was evidence of bilateral pleural effusion and cardiomegaly and I do raises the concern for CHF knowing that the patient's proBNP level was quite elevated. The patient takes Lasix on and up on outpatient basis. Note that his serum bicarb is 33 consistent with chronic hypercapnic respiratory failure and chronic CO2 retention. Renal function stable. Troponin was at 0.03. ProBNP level was 4920, COVID 19 testing was positive through a nasal swab by PCR. D-dimer was at 2.5. The white cell count was at 8.3 with a hemoglobin of 16 and the patient had some lymphopenia. She typically does not follow-up with a physician. She does see a holistic person. She doesn't take medication on a regular basis. She has seen Shayy Newell in the past, medical CURATORIAL ASSISTANT, and the patient is a smoker. She has not been vaccinated. She denies having any chronic form of lung disease or disorder. A 04/10/2021, I'm seeing the patient for a follow-up H is feeling better compared to yesterday. Dr. soriano is also improving. The patient is currently on 5 L of oxygen by nasal cannula and a pulse ox is around 92%. She is having some labored breathing special with dark and movement. The patient is morbidly obese and she has a BMI of 72.3. Note that the blood. This was done and the burst department yesterday showed evidence of an acute on top of chronic hypercapnic respiratory failure with a pH of 7.26 and a pCO2 of 82. This was done 100% FiO2 and the patient had a O2 of 145. For now, the patient remains on IV Lasix. The patient is receiving Lasix 40 mg IV on a daily basis. She is on Lovenox 40 be prophylaxis. Echocardiac Alfred showed a preserved LV function. No signs of any significant pulmonary hypertension. The patient is also on Decadron regarding her COVID 19 related pneumonia. LDH level is at 858, CRP level is at 4.3, Pronestyl level is at 0.18. C, Objective - Vital Signs Vital signs: Vital Signs Temp 97.0 F L 04/10/21 12:00 Pulse 68 04/10/21 14:00 Resp 20 04/10/21 14:00 BP 127/74 04/10/21 12:00 Pulse Ox 94 L 04/10/21 12:00 Intake & Output 04/09/21 04/10/21 04/10/21 18:59 06:59 18:59 Intake Total 30 240 Balance 30 240 Weight 192.777 kg 191 kg Intake: IV 30 Invasive Line 1 20 Invasive Line 2 10 Oral 240 Other: Voiding Method Toilet Toilet # Voids 2 1 - Exam General appearance: alert, and the patient is morbidly obese and she carries a BMI of 73.0. Currently she is on 6 L of oxygen by nasal cannula. Head exam: Present: normocephalic Eye exam: Present: normal appearance ENT exam: Present: normal oropharynx, the patient has significant crowding of the posterior oropharynx and the patient has a Mallampati class IV Neck exam: Present: normal inspection Respiratory exam: Present: wheezes (Mild expiratory), diminished breath sounds and the patient has crackles in the mid and lower lungs bilaterally Cardiovascular Exam: Present: regular rate, normal rhythm GI/Abdominal exam: Present: soft. Absent: tenderness, and the patient is morbidly obese to the point where the organs cannot be accurately palpated. No direct tenderness. No rebound tenderness. No guarding Extremities exam: Present: normal inspection, the patient has chronic edema lower extremities bilaterally. No open wounds or ulcerations. Neurological exam: Present: alert Psychiatric exam: Present: normal affect, normal mood Skin exam: Present: normal color, cyanosis - Labs CBC & Chem 7: 04/10/21 09:01 04/10/21 09:01 Labs: Abnormal Lab Results - Last 24 Hours (Table) 04/09/21 04/09/21 04/09/21 Range/Units 18:32 20:08 20:08 RBC (3.80-5.40) m/uL Hct (34.0-46.0) % MCHC (31.0-37.0) g/dL RDW (11.5-15.5) % Plt Count (150-450) k/uL Lymphocytes # (1.0-4.8) k/uL ABG pH 7.26 L (7.35-7.45) ABG pCO2 82 H* (35-45) mmHg ABG pO2 145 H (83-108) mmHg ABG HCO3 37 H (21-25) mmol/L ABG Total CO2 40 H (19-24) mmol/L ABG O2 Saturation 98.7 H (94-97) % Chloride (98-107) mmol/L Carbon Dioxide (22-30) mmol/L BUN (7-17) mg/dL Glucose (74-99) mg/dL POC Glucose (mg/dL) (75-99) mg/dL Calcium (8.4-10.2) mg/dL Lactate Dehydrogenase 858 H (313-618) U/L C-Reactive Protein 4.3 H (<1.0) mg/dL Procalcitonin 0.18 H (0.02-0.09) ng/mL 04/10/21 04/10/21 04/10/21 Range/Units 06:00 09:01 09:01 RBC 5.61 H (3.80-5.40) m/uL Hct 51.1 H (34.0-46.0) % MCHC 30.5 L (31.0-37.0) g/dL RDW 16.7 H (11.5-15.5) % Plt Count 110 L (150-450) k/uL Lymphocytes # 0.7 L (1.0-4.8) k/uL ABG pH (7.35-7.45) ABG pCO2 (35-45) mmHg ABG pO2 (83-108) mmHg ABG HCO3 (21-25) mmol/L ABG Total CO2 (19-24) mmol/L ABG O2 Saturation (94-97) % Chloride 97 L (98-107) mmol/L Carbon Dioxide 38 H (22-30) mmol/L BUN 23 H (7-17) mg/dL Glucose 124 H (74-99) mg/dL POC Glucose (mg/dL) 123 H (75-99) mg/dL Calcium 7.8 L (8.4-10.2) mg/dL Lactate Dehydrogenase 761 H (313-618) U/L C-Reactive Protein 4.5 H (<1.0) mg/dL Procalcitonin (0.02-0.09) ng/mL 04/10/21 Range/Units 12:08 RBC (3.80-5.40) m/uL Hct (34.0-46.0) % MCHC (31.0-37.0) g/dL RDW (11.5-15.5) % Plt Count (150-450) k/uL Lymphocytes # (1.0-4.8) k/uL ABG pH (7.35-7.45) ABG pCO2 (35-45) mmHg ABG pO2 (83-108) mmHg ABG HCO3 (21-25) mmol/L ABG Total CO2 (19-24) mmol/L ABG O2 Saturation (94-97) % Chloride (98-107) mmol/L Carbon Dioxide (22-30) mmol/L BUN (7-17) mg/dL Glucose (74-99) mg/dL POC Glucose (mg/dL) 118 H (75-99) mg/dL Calcium (8.4-10.2) mg/dL Lactate Dehydrogenase (313-618) U/L C-Reactive Protein (<1.0) mg/dL Procalcitonin (0.02-0.09) ng/mL Assessment and Plan Plan: 1 acute COVID 19 related pneumonia. Symptoms started approximately 5 days ago and the patient is not vaccinated. The patient presented quite hypoxic to the emergency department initially she was in the 100% on a beta facemasks and currently she is down to 6 L. Noted the patient had a blood gas in the maintenance department that showed an acute on top of chronic hypoxic and hypercapnic respiratory failure. She does have a component of chronic obesity hypoventilation syndrome. 2 acute hypoxic respiratory failure secondary to above currently on 6 L about 2 by nasal cannula. 3 chronic hypoxic and hypercapnic respiratory failure due to morbid obesity, BMI 72.3 4 metabolic alkalosis, likely chronic 5 chronic lower extremity edema 6 morbid obesity with a BMI of 73 7 elevated troponin without any acute ischemic changes. No history of any coronary artery disease. 8 preserved left ventricular ejection fraction, previous refer to the echocardiogram results. 9 chronic lower extremity edema Plan Wean down the FiO2 to maintain a saturation above 90% Continue Lasix 40 mg IV every 24 hours Continue Lovenox 40 mg subcu every 24 hours Check inflammatory markers including LDH, CRP and pro calcitonin level to the echocardiogram was noted We'll continue to follow make further recommendations based on her progress.
[2021-04-10 16:45] LABS: Glucose,Whole Blood 113 mg/dL (75-99)
[2021-04-10 20:17] LABS: Glucose,Whole Blood 107 mg/dL (75-99)
[2021-04-11] MEDS: ASCORBIC ACID 500 MG TAB PO SCH ×2 (11:10→19:54)
[2021-04-11] MEDS: CHOLECALCIFEROL 25 MCG (1000 IU) TABLET PO SCH (11:10)
[2021-04-11] MEDS: ENOXAPARIN 40 MG/0.4 ML SYRINGE SQ SCH (11:10)
[2021-04-11] MEDS: FUROSEMIDE 10 MG/ML 4 ML VIAL IV SCH (11:11)
[2021-04-11] MEDS: ZINC SULFATE 220 MG CAP PO SCH (11:11)
[2021-04-11] MEDS: DEXAMETHASONE SOD PHOSPHATE 10 MG/ML 1 ML VIAL IVP SCH (11:12)
[2021-04-11 11:49] LABS: Glucose,Whole Blood 150 mg/dL (75-99)
[2021-04-11 12:51] LABS: African American GFR (CKD) >90 (>60 ml/min/1.73 sqM); Anion Gap 5 mmol/L; Blood Urea Nitrogen 22 mg/dL (7-17); C Reactive Protein 6.9 mg/dL (<1.0); Carbon Dioxide 39 mmol/L (22-30); Chloride 95 mmol/L (98-107); Glucose 120 mg/dL (74-99); LDH 797 U/L (313-618); Non-African American GFR(CKD) >90 (>60 ml/min/1.73 sqM); Potassium 4.7 mmol/L (3.5-5.1); Sodium 139 mmol/L (137-145)
--- NOTE | 2021-04-11 13:31 | P.PN ---
Subjective Progress Note Date: 04/10/21 Principal diagnosis: Acute hypoxic respiratory failure secondary to COVID-19 pneumonia Patient is a 60-year-old with a known history of morbid obesity and obesity hypoventilation and chronic lower extremity edema presents to ER with the complaints of worsening shortness of breath for the past 5 days. Patient started having cold-like symptoms. Due to worsening symptoms patient went to see her PCP and was found to be hypoxic with pulse ox. 50 % and also had purple discoloration. Patient refused EMS transfer. Otherwise patient has been afebrile. No complaints of chest pain. Does have cough without sputum production. Patient otherwise denied any nausea or vomiting. Her taste felt different this morning. On admission blood pressure 172/88 pulse 83 respirations 24 and pulse ox 97% on room air. Patient was awake and alert and oriented. Patient was placed on her person nontender with a and pulse ox went up to 96%. Chest x-ray showed cardiomegaly with bilateral multifocal mild to lower lung opacities. Correlate exclude COVID-[address] angiogram of the chest is suboptimal study without central pulmonary embolism. Laboratory data showed WBC 8.3 hemoglobin 16.1 and platelets 128 Lymphocytes 0.8 and d-dimer is 2.54 ABG showed pH of 7.26 pCO2 82 pO2 145 Sodium 139 potassium 4.7 chloride 100 bicarb is 33 BUN 21 and creatinine 0.76 AST 50 ALT 44 alk phos 79 and troponin 0.038 and 0.032 ProBNP 4924 and COVID-19 PCR detected. Pro-calcitonin level is 0.18 04/10/2021 Patient is currently in the [facility] care unit. Awake alert and oriented 3. Requiring oxygen at 5 L via nasal cannula. Patient states that Breathing status is better today. Patient is being continued on dexamethasone and Lovenox. Also on Lasix 40 mg IV daily. Cardiology is on board. Elevated troponin.. 2-D echocardiogram showed ejection fraction 50-55% and no significant valvular abnormalities noted. Laboratory data showed WBC 8.2 hemoglobin 15.6 and platelets 110 BUN 23 and creatinine 0.7 to bicarb is 38 and a chloride 97 sodium 140 potassium 4.6 LDH 761 and CRP 4.5. Current medications reviewed. Objective - Vital Signs Vital signs: Vital Signs Temp 97.5 F L 04/10/21 08:13 Pulse 77 04/10/21 08:13 Resp 20 04/10/21 08:13 BP 132/72 04/10/21 08:13 Pulse Ox 92 L 04/10/21 08:13 Intake & Output 04/09/21 04/10/21 04/10/21 18:59 06:59 18:59 Intake Total 30 240 Balance 30 240 Weight 192.777 kg 191 kg Intake: IV 30 Invasive Line 1 20 Invasive Line 2 10 Oral 240 Other: Voiding Method Toilet # Voids 2 1 - Exam PHYSICAL EXAMINATION: Patient is lying in the bed comfortably, no acute distress, awake alert and oriented. On NC now.. HEENT: Normocephalic. Neck is supple. Pupils reactive. Nostrils clear. Oral cavity is moist. Neck reveals no JVD, carotid bruits, or thyromegaly. CHEST EXAMINATION: Trachea is central. Symmetrical expansion. Bilateral diminished air entry and scattered coarse sounds.. CARDIAC: Normal S1, S2 with no gallops. No murmurs ABDOMEN: Soft. Bowel sounds normal. No organomegaly. No abdominal bruits. Extremities: Bilateral lower extremity trace edema. No clubbing or cyanosis Neurologically awake, alert, oriented x3 with well-coordinated movements. No focal deficits noted Skin: No rash or skin lesions. Psychiatric: Coperative. Nonsuicidal Musculoskeletal: No joint swelling or deformity. Normal range of motion. - Labs CBC & Chem 7: 04/10/21 09:01 04/11/21 11:21 Labs: Abnormal Lab Results - Last 24 Hours (Table) 04/09/21 04/09/21 04/09/21 Range/Units 12:21 12: 12: RBC 5.74 H (3.80-5.40) m/uL Hgb 16.1 H (11.4-16.0) gm/dL Hct 51.3 H (34.0-46.0) % RDW 17.0 H (11.5-15.5) % Plt Count 128 L (150-450) k/uL Lymphocytes # 0.8 L (1.0-4.8) k/uL D-Dimer 2.54 H (<0.60) mg/L FEU ABG pH (7.35-7.45) ABG pCO2 (35-45) mmHg ABG pO2 (83-108) mmHg ABG HCO3 (21-25) mmol/L ABG Total CO2 (19-24) mmol/L ABG O2 Saturation (94-97) % Carbon Dioxide (22-30) mmol/L BUN (7-17) mg/dL Glucose (74-99) mg/dL POC Glucose (mg/dL) (75-99) mg/dL Calcium (8.4-10.2) mg/dL AST (14-36) U/L ALT (4-34) U/L Lactate Dehydrogenase (313-618) U/L Troponin I (0.000-0.034) ng/mL C-Reactive Protein (<1.0) mg/dL Procalcitonin (0.02-0.09) ng/mL Coronavirus (PCR) Detected A (Not Detectd) 04/09/21 04/09/21 04/09/21 Range/Units : 12: 18:32 RBC (3.80-5.40) m/uL Hgb (11.4-16.0) gm/dL Hct (34.0-46.0) % RDW (11.5-15.5) % Plt Count (150-450) k/uL Lymphocytes # (1.0-4.8) k/uL D-Dimer (<0.60) mg/L FEU ABG pH 7.26 L (7.35-7.45) ABG pCO2 82 H* (35-45) mmHg ABG pO2 145 H (83-108) mmHg ABG HCO3 37 H (21-25) mmol/L ABG Total CO2 40 H (19-24) mmol/L ABG O2 Saturation 98.7 H (94-97) % Carbon Dioxide 33 H (22-30) mmol/L BUN 21 H (7-17) mg/dL Glucose 125 H (74-99) mg/dL POC Glucose (mg/dL) (75-99) mg/dL Calcium 8.2 L (8.4-10.2) mg/dL AST 53 H (14-36) U/L ALT 44 H (4-34) U/L Lactate Dehydrogenase (313-618) U/L Troponin I 0.038 H* (0.000-0.034) ng/mL C-Reactive Protein (<1.0) mg/dL Procalcitonin (0.02-0.09) ng/mL Coronavirus (PCR) (Not Detectd) 04/09/21 04/09/21 04/10/21 Range/Units 20:08 20:08 06:00 RBC (3.80-5.40) m/uL Hgb (11.4-16.0) gm/dL Hct (34.0-46.0) % RDW (11.5-15.5) % Plt Count (150-450) k/uL Lymphocytes # (1.0-4.8) k/uL D-Dimer (<0.60) mg/L FEU ABG pH (7.35-7.45) ABG pCO2 (35-45) mmHg ABG pO2 (83-108) mmHg ABG HCO3 (21-25) mmol/L ABG Total CO2 (19-24) mmol/L ABG O2 Saturation (94-97) % Carbon Dioxide (22-30) mmol/L BUN (7-17) mg/dL Glucose (74-99) mg/dL POC Glucose (mg/dL) 123 H (75-99) mg/dL Calcium (8.4-10.2) mg/dL AST (14-36) U/L ALT (4-34) U/L Lactate Dehydrogenase 858 H (313-618) U/L Troponin I (0.000-0.034) ng/mL C-Reactive Protein 4.3 H (<1.0) mg/dL Procalcitonin 0.18 H (0.02-0.09) ng/mL Coronavirus (PCR) (Not Detectd) Assessment and Plan Assessment: Acute hypoxic and hypercapnic respiratory failure secondary to COVID-19 pneumonia requiring nonrebreather on admission. Pulse ox was 57% on room air on admission. Currently on 5 L via nasal cannula. Acute COVID-19 pneumonia. Symptoms for the past 5 days. Patient is not vaccinated. Elevated troponin level likely due to demand mismatch. Acute CHF with preserved EF. Morbid obesity BMI 72.3 Obesity hypoventilation syndrome with suspected chronic hypoxemia. Currently not on oxygen at home. Chronic bilateral lower extremity edema DVT prophylaxis. Plan: Patient will be continued on oxygen supplementation via nasal cannula.. Continue with the Decadron, Lovenox and multivitamins. Patient being continued on daily IV Lasix. Pulmonary is on board. Cardiology was consulted due to elevated troponin level. 2-D echo cardiac was ordered. Showed normal EF. Currently patient denied any chest pain. Continue to follow closely and prognosis is guarded at this time.
--- NOTE | 2021-04-11 14:44 | P.PN ---
Subjective Progress Note Date: 04/11/21 60-year-old morbidly obese female patient, with obvious features of obstructive sleep apnea and obesity hypoventilation syndrome and chronic lower extremity edema and possibly some chronic hypoxemia. The patient started getting symptoms of flulike illness approximately 5 days ago. She apparently got exposed to people during Thanksgiving dinner was she visited her brother and ultimately she got sick and she became more short of breath and congested and had increased cough and she came into the emergency with a pulse ox of 60%. At that point, the patient was placed on 100% nonrebreather facemask. Her current pulse ox is around 93%. She short of breath even while talking and she is unable to speak up. Since. Her initial workup showed a chest x-ray that showed cardiomegaly and bilateral pulmonary infiltrates. CT angiogram showed no evidence of any pulmonary embolism. It was a suboptimal study. There was some groundglass changes bilaterally and there was evidence of bilateral pleural effusion and cardiomegaly and I do raises the concern for CHF knowing that the patient's proBNP level was quite elevated. The patient takes Lasix on and up on outpatient basis. Note that his serum bicarb is 33 consistent with chronic hypercapnic respiratory failure and chronic CO2 retention. Renal function stable. Troponin was at 0.03. ProBNP level was 4920, COVID 19 testing was positive through a nasal swab by PCR. D-dimer was at 2.5. The white cell count was at 8.3 with a hemoglobin of 16 and the patient had some lymphopenia. She typically does not follow-up with a physician. She does see a holistic person. She doesn't take medication on a regular basis. She has seen Shayy Newell in the past, medical [employer], and the patient is a smoker. She has not been vaccinated. She denies having any chronic form of lung disease or disorder. A 04/10/2021, I'm seeing the patient for a follow-up H is feeling better compared to yesterday. Dr. soriano is also improving. The patient is currently on 5 L of oxygen by nasal cannula and a pulse ox is around 92%. She is having some labored breathing special with dark and movement. The patient is morbidly obese and she has a BMI of 72.3. Note that the blood. This was done and the burst department yesterday showed evidence of an acute on top of chronic hypercapnic respiratory failure with a pH of 7.26 and a pCO2 of 82. This was done 100% FiO2 and the patient had a O2 of 145. For now, the patient remains on IV Lasix. The patient is receiving Lasix 40 mg IV on a daily basis. She is on Lovenox 40 be prophylaxis. Echocardiac Alfred showed a preserved LV function. No signs of any significant pulmonary hypertension. The patient is also on Decadron regarding her COVID 19 related pneumonia. LDH level is at 858, CRP level is at 4.3, Pronestyl level is at 0.18. C, 04/11/2021, the patient was complaints. She remains on oxygen at 6 L per minute nasal cannula. She is feeling well. No specific complaints otherwise for now. She is diuresing. Temperature is 98.8. She remains in a negative fluid balance. She remains on a combination of Decadron 6 mg IV every 24 hours and she is also on Lasix 40 g IV every 24 hours. She is also on vitamin C and zinc. No fever. No chills no other complaints otherwise for now. The patient improved calcitonin level of 0.18. Her LDH level remains low at 797. Objective - Vital Signs Vital signs: Vital Signs Temp 98.8 F 04/11/21 12:00 Pulse 85 04/11/21 12:00 Resp 18 04/11/21 12:00 BP 128/69 04/11/21 12:00 Pulse Ox 89 L 04/11/21 12:00 Intake & Output 04/10/21 04/11/21 04/11/21 18:59 06:59 18:59 Intake Total 720 0 Output Total 600 750 Balance 720 -600 -750 Intake: Oral 720 0 Output: Urine 600 750 Other: Voiding Method Toilet Toilet Toilet # Voids 1 - Exam General appearance: alert, and the patient is morbidly obese and she carries a BMI of 73.0. Currently she is on 6 L of oxygen by nasal cannula. Head exam: Present: normocephalic Eye exam: Present: normal appearance ENT exam: Present: normal oropharynx, the patient has significant crowding of the posterior oropharynx and the patient has a Mallampati class IV Neck exam: Present: normal inspection Respiratory exam: Present: wheezes (Mild expiratory), diminished breath sounds and the patient has crackles in the mid and lower lungs bilaterally Cardiovascular Exam: Present: regular rate, normal rhythm GI/Abdominal exam: Present: soft. Absent: tenderness, and the patient is morbidly obese to the point where the organs cannot be accurately palpated. No direct tenderness. No rebound tenderness. No guarding Extremities exam: Present: normal inspection, the patient has chronic edema lower extremities bilaterally. No open wounds or ulcerations. Neurological exam: Present: alert Psychiatric exam: Present: normal affect, normal mood Skin exam: Present: normal color, cyanosis - Labs CBC & Chem 7: 04/10/21 09:01 04/11/21 11:21 Labs: Abnormal Lab Results - Last 24 Hours (Table) 04/10/21 04/10/21 04/11/21 Range/Units 16:40 20:09 11:21 Chloride 95 L (98-107) mmol/L Carbon Dioxide 39 H (22-30) mmol/L BUN 22 H (7-17) mg/dL Glucose 120 H (74-99) mg/dL POC Glucose (mg/dL) 113 H 107 H (75-99) mg/dL Calcium 8.0 L (8.4-10.2) mg/dL Lactate Dehydrogenase 797 H (313-618) U/L C-Reactive Protein 6.9 H (<1.0) mg/dL 04/11/21 Range/Units 11:46 Chloride (98-107) mmol/L Carbon Dioxide (22-30) mmol/L BUN (7-17) mg/dL Glucose (74-99) mg/dL POC Glucose (mg/dL) 150 H (75-99) mg/dL Calcium (8.4-10.2) mg/dL Lactate Dehydrogenase (313-618) U/L C-Reactive Protein (<1.0) mg/dL Assessment and Plan Plan: 1 acute COVID 19 related pneumonia. Symptoms started approximately 5 days ago and the patient is not vaccinated. The patient presented quite hypoxic to the emergency department initially she was in the 100% on a beta facemasks and currently she is down to 6 L. Noted the patient had a blood gas in the maintenance department that showed an acute on top of chronic hypoxic and hypercapnic respiratory failure. She does have a component of chronic obesity hypoventilation syndrome. Clinically the patient is improving as the patient is being treated with a combination of diuretics and steroids. She remains on Decadron 6 mg IV every 24 hours. She is also on Lasix 40 mg once a day. 2 acute hypoxic respiratory failure secondary to above currently on 6 L nasal cannula. 3 chronic hypoxic and hypercapnic respiratory failure due to morbid obesity, BMI 72.3 4 metabolic alkalosis, likely chronic 5 chronic lower extremity edema 6 morbid obesity with a BMI of 73 7 elevated troponin without any acute ischemic changes. No history of any coronary artery disease. 8 preserved left ventricular ejection fraction, previous refer to the echocardiogram results. 9 chronic lower extremity edema Plan Wean down the FiO2 to maintain a saturation above 90% Continue Lasix 40 mg IV every 24 hours Continue Lovenox 40 mg subcu every 24 hours Check inflammatory markers including LDH, CRP and pro calcitonin level, and fermented markers and generalized low including LDH and CRP and d-dimer is. No evidence of any pulmonary hypertension or LV dysfunction. We'll continue to follow make further recommendations based on her progress.
--- NOTE | 2021-04-11 15:21 | PCN ---
PROCEDURE NOTE This is a 60-year-old lady who is admitted to hospital with Covid pneumonia with hypoxia and Cardiology had been consulted because of elevated troponin. She continues to be short of breath. She is requiring 6 L of nasal O2 and is not saturating very well. Last night, she did not have BiPAP on and became quite hypoxic and confused. She is a little better today. EXAM: She is afebrile. Heart rate is 85 beats per minute. Blood pressure is 128/69, respiratory rate is 18, O2 saturation is 89% on 6 L. LABS: Labs show that the potassium is 4.7, creatinine is 0.5. ASSESSMENT: 1. Elevated troponin, probably secondary to type 2 myocardial infarction. 2. Covid pneumonia with hypoxia. I reviewed her echocardiogram results. Her LV function is normal. We can decrease her Lasix to 20 mg daily. MMODL / IJN: [id number] /
[2021-04-11 16:35] LABS: Glucose,Whole Blood 127 mg/dL (75-99)
[2021-04-11 20:49] LABS: Glucose,Whole Blood 115 mg/dL (75-99)
[2021-04-11 22:48] LABS: Glucose,Whole Blood 109 mg/dL (75-99)
[2021-04-12 06:34] LABS: Glucose,Whole Blood 106 mg/dL (75-99)
[2021-04-12] MEDS: ASCORBIC ACID 500 MG TAB PO SCH ×2 (08:14→19:49)
[2021-04-12] MEDS: ENOXAPARIN 40 MG/0.4 ML SYRINGE SQ SCH (08:15)
[2021-04-12] MEDS: ZINC SULFATE 220 MG CAP PO SCH (08:15)
[2021-04-12] MEDS: DEXAMETHASONE SOD PHOSPHATE 10 MG/ML 1 ML VIAL IVP SCH (08:15)
[2021-04-12] MEDS: CHOLECALCIFEROL 25 MCG (1000 IU) TABLET PO SCH (08:15)
[2021-04-12] MEDS: FUROSEMIDE 10 MG/ML 2 ML VIAL IV SCH (08:15)
[2021-04-12 11:20] LABS: Glucose,Whole Blood 127 mg/dL (75-99)
--- NOTE | 2021-04-12 14:43 | P.PN ---
Subjective Progress Note Date: 04/12/21 The patient is a 60-year-old female patient was admitted to the hospital with Covid pneumonia with hypoxia patient is examined today sleeping in bed on 6 L high flow O2 91%. Patient somewhat lethargic, but responds to voice. She is orientated to person place and time. patient was placed on a BiPAP at night. Patient reports she had a fall last night she fell asleep while using the bathroom. Patient did not sustain any injuries from the fall, nor did she had her head. Patient's blood pressure remains elevated today systolically in the 150s. Patient's blood pressure 164/80, heart rate 87, patient is 92% on 6 L high flow respirations 20, afebrile. Objective - Vital Signs Vital signs: Vital Signs Temp 98.1 F 04/12/21 12:29 Pulse 87 04/12/21 12:29 Resp 20 04/12/21 12:29 BP 164/80 04/12/21 12:29 Pulse Ox 92 L 04/12/21 12:29 Intake & Output 04/11/21 04/12/21 04/12/21 18:59 06:59 18:59 Intake Total 598 236 Output Total 750 600 Balance -152 -600 236 Weight 186.5 kg Intake: Oral 598 236 Output: Urine 750 600 Other: Voiding Method Toilet Toilet Toilet - Exam PHYSICAL EXAM: VITAL SIGNS: Reviewed. GENERAL: Well-developed in no acute distress. HEENT: Head is normocephalic. Pupils are equal, round. Sclerae anicteric. Mucous membranes of the mouth are moist. NECK: Supple. No JVD or thyromegaly LUNGS: Respirations even and unlabored. Lungs diminished to auscultation bilaterally. HEART: Regular rate and rhythm. S1 and S2 heard. No murmur or gallops. EXTREMITIES: Normal range of motion. No clubbing or cyanosis. Peripheral pulses intact. Trace bilateral lower extremity edema NEURO: Orientated to person, time, mood is appropriate - Labs CBC & Chem 7: 04/10/21 09:01 04/11/21 11:21 Labs: Abnormal Lab Results - Last 24 Hours (Table) 04/11/21 04/11/21 04/11/21 Range/Units 16:33 20:38 22:46 POC Glucose (mg/dL) 127 H 115 H 109 H (75-99) mg/dL 04/12/21 04/12/21 Range/Units 06:19 11:18 POC Glucose (mg/dL) 106 H 127 H (75-99) mg/dL Assessment and Plan Assessment: Elevated troponin probably secondary to type 2 myocardial infarction Covid pneumonia with hypoxia hypertension possibly to IV steroids and Covid pneumonia Acute diastolic congestive heart failure Obstructive sleep apnea Morbid obesity Plan: Start Norvasc 10 mg daily, with first dose now Continue current cardiac medication Continue Covid pneumonia treatment Continue accurate I's and O's Continue daily weights Continue to monitor kidney function Continue pulmonary following Further recommendations pending patient's course Nurse practitioner note has been reviewed by physician. Signing provider agrees with documented findings, assessment, and plan acute.
--- NOTE | 2021-04-12 15:08 | P.PN ---
Subjective Progress Note Date: 04/12/21 60-year-old morbidly obese female patient, with obvious features of obstructive sleep apnea and obesity hypoventilation syndrome and chronic lower extremity edema and possibly some chronic hypoxemia. The patient started getting symptoms of flulike illness approximately 5 days ago. She apparently got exposed to people during Thanksgiving dinner was she visited her brother and ultimately she got sick and she became more short of breath and congested and had increased cough and she came into the emergency with a pulse ox of 60%. At that point, the patient was placed on 100% nonrebreather facemask. Her current pulse ox is around 93%. She short of breath even while talking and she is unable to speak up. Since. Her initial workup showed a chest x-ray that showed cardiomegaly and bilateral pulmonary infiltrates. CT angiogram showed no evidence of any pulmonary embolism. It was a suboptimal study. There was some groundglass changes bilaterally and there was evidence of bilateral pleural effusion and cardiomegaly and I do raises the concern for CHF knowing that the patient's proBNP level was quite elevated. The patient takes Lasix on and up on outpatient basis. Note that his serum bicarb is 33 consistent with chronic hypercapnic respiratory failure and chronic CO2 retention. Renal function stable. Troponin was at 0.03. ProBNP level was 4920, COVID 19 testing was positive through a nasal swab by PCR. D-dimer was at 2.5. The white cell count was at 8.3 with a hemoglobin of 16 and the patient had some lymphopenia. She typically does not follow-up with a physician. She does see a holistic person. She doesn't take medication on a regular basis. She has seen Shayy Newell in the past, medical [facility], and the patient is a smoker. She has not been vaccinated. She denies having any chronic form of lung disease or disorder. A 04/10/2021, I'm seeing the patient for a follow-up H is feeling better compared to yesterday. Dr. soriano is also improving. The patient is currently on 5 L of oxygen by nasal cannula and a pulse ox is around 92%. She is having some labored breathing special with dark and movement. The patient is morbidly obese and she has a BMI of 72.3. Note that the blood. This was done and the burst department yesterday showed evidence of an acute on top of chronic hypercapnic respiratory failure with a pH of 7.26 and a pCO2 of 82. This was done 100% FiO2 and the patient had a O2 of 145. For now, the patient remains on IV Lasix. The patient is receiving Lasix 40 mg IV on a daily basis. She is on Lovenox 40 be prophylaxis. Echocardiac Alfred showed a preserved LV function. No signs of any significant pulmonary hypertension. The patient is also on Decadron regarding her COVID 19 related pneumonia. LDH level is at 858, CRP level is at 4.3, Pronestyl level is at 0.18. C, 04/11/2021, the patient was complaints. She remains on oxygen at 6 L per minute nasal cannula. She is feeling well. No specific complaints otherwise for now. She is diuresing. Temperature is 98.8. She remains in a negative fluid balance. She remains on a combination of Decadron 6 mg IV every 24 hours and she is also on Lasix 40 g IV every 24 hours. She is also on vitamin C and zinc. No fever. No chills no other complaints otherwise for now. The patient improved calcitonin level of 0.18. Her LDH level remains low at 797. 04/12/2021. The patient for a follow-up. The patient had a episodes of fall yesterday in the bathroom. No major injuries. I was told that are not the patient was found to be very much lethargic and sleepy. Yesterday morning apparently she woke up very much sleepy and somnolent. After being placed on a CPAP/BiPAP, she improved considerably. I have encouraged her to use the BiPAP on a regular basis during her hospital stay. The patient is obvious features obstructive sleep apnea and therefore was probably related to a sleep attack. She is very much sounds are positive. She didn't particularly response to BiPAP therapy. Meanwhile, the patient is still being diuresis IV Lasix. She is also on Decadron 6 mg by mouth daily regarding her COVID 19 related infection/pneumonia. No worsening shortness of breath. No worsening in her oxygenation the patient is on 6 L of oxygen by nasal cannula. Objective - Vital Signs Vital signs: Vital Signs Temp 98.1 F 04/12/21 12:29 Pulse 87 04/12/21 14:00 Resp 20 04/12/21 14:00 BP 164/80 04/12/21 12:29 Pulse Ox 92 L 04/12/21 12:29 Intake & Output 04/11/21 04/12/21 04/12/21 18:59 06:59 18:59 Intake Total 598 236 Output Total 750 600 Balance -152 -600 236 Weight 186.5 kg Intake: Oral 598 236 Output: Urine 750 600 Other: Voiding Method Toilet Toilet Toilet - Exam General appearance: alert, and the patient is morbidly obese and she carries a BMI of 73.0. Currently she is on 6 L of oxygen by nasal cannula. Head exam: Present: normocephalic Eye exam: Present: normal appearance ENT exam: Present: normal oropharynx, the patient has significant crowding of the posterior oropharynx and the patient has a Mallampati class IV Neck exam: Present: normal inspection Respiratory exam: Present: wheezes (Mild expiratory), diminished breath sounds and the patient has crackles in the mid and lower lungs bilaterally Cardiovascular Exam: Present: regular rate, normal rhythm GI/Abdominal exam: Present: soft. Absent: tenderness, and the patient is morbidly obese to the point where the organs cannot be accurately palpated. No direct tenderness. No rebound tenderness. No guarding Extremities exam: Present: normal inspection, the patient has chronic edema lower extremities bilaterally. No open wounds or ulcerations. Neurological exam: Present: alert Psychiatric exam: Present: normal affect, normal mood Skin exam: Present: normal color, cyanosis - Labs CBC & Chem 7: 04/10/21 09:01 04/11/21 11:21 Labs: Abnormal Lab Results - Last 24 Hours (Table) 04/11/21 04/11/21 04/11/21 Range/Units 16:33 20:38 22:46 POC Glucose (mg/dL) 127 H 115 H 109 H (75-99) mg/dL 04/12/21 04/12/21 Range/Units 06:19 11:18 POC Glucose (mg/dL) 106 H 127 H (75-99) mg/dL Assessment and Plan Plan: 1 acute COVID 19 related pneumonia. Symptoms started approximately 5 days ago and the patient is not vaccinated. The patient is currently on Decadron 6 mg IV every 24 hours. The patient is stable. Her oxidation is also stable at 6 L about 2 by nasal cannula. Nevertheless, she has obvious features of obstructive sleep apnea. She is suffering from hypersomnia and sleep attacks and she did have bout of fall yesterday and the bathroom. The patient is noted to be much more somnolent and sleepy while not using the BiPAP therapy. 2 acute hypoxic respiratory failure secondary to above currently on 6 L nasal cannula. There may be also a component of chronic hypoxic respiratory failure. Baseline oxygen saturation is not known. 3 chronic hypoxic and hypercapnic respiratory failure due to morbid obesity, BMI 72.3 4 metabolic alkalosis, likely chronic 5 chronic lower extremity edema 6 morbid obesity with a BMI of 73, with typical features of symptomatic obstr uctive sleep apnea 7 elevated troponin without any acute ischemic changes. No history of any coron addie artery disease. 8 preserved left ventricular ejection fraction, previous refer to the echoca rdiogram results. 9 chronic lower extremity edema 10 chronic hypersomnia likely secondary to obstructive sleep apnea with possible component of obesity hypoventilation syndrome/obesity related hypoventilation 11.Sleep attack/fall likely secondary to obstructive sleep apnea. Plan Patient has obvious features of obstructive sleep apnea. She'll be encouraged use the BiPAP during her hospital stay. She will also need outpatient evaluation with polysomnogram and treatment accordingly. Highly suspicious for very severe symptomatic obstructive sleep apnea the patient is benefiting from BiPAP therapy as an inpatient basis. The same BiPAP settings. Wean down the FiO2 to maintain a saturation above 90% Continue Lasix 40 mg IV every 24 hours Continue Lovenox 40 mg subcu every 24 hours Check inflammatory markers including LDH, CRP and pro calcitonin level, and fermented markers and generalized low including LDH and CRP and d-dimer No evidence of any pulmonary hypertension or LV dysfunction. We'll continue to follow make further recommendations based on her progress.
[2021-04-12] MEDS: amLODIPine 10 MG TAB PO SCH (15:50)
[2021-04-12 16:20] LABS: Glucose,Whole Blood 118 mg/dL (75-99)
[2021-04-12 20:03] LABS: Glucose,Whole Blood 134 mg/dL (75-99)
--- NOTE | 2021-04-12 22:22 | P.PN ---
Subjective Progress Note Date: 04/11/21 Principal diagnosis: Acute hypoxic respiratory failure secondary to COVID-19 pneumonia Patient is a 60-year-old with a known history of morbid obesity and obesity hypoventilation and chronic lower extremity edema presents to ER with the complaints of worsening shortness of breath for the past 5 days. Patient started having cold-like symptoms. Due to worsening symptoms patient went to see her PCP and was found to be hypoxic with pulse ox. 50 % and also had purple discoloration. Patient refused EMS transfer. Otherwise patient has been afebrile. No complaints of chest pain. Does have cough without sputum production. Patient otherwise denied any nausea or vomiting. Her taste felt different this morning. On admission blood pressure 172/88 pulse 83 respirations 24 and pulse ox 97% on room air. Patient was awake and alert and oriented. Patient was placed on her person nontender with a and pulse ox went up to 96%. Chest x-ray showed cardiomegaly with bilateral multifocal mild to lower lung opacities. Correlate exclude COVID-[address] angiogram of the chest is suboptimal study without central pulmonary embolism. Laboratory data showed WBC 8.3 hemoglobin 16.1 and platelets 128 Lymphocytes 0.8 and d-dimer is 2.54 ABG showed pH of 7.26 pCO2 82 pO2 145 Sodium 139 potassium 4.7 chloride 100 bicarb is 33 BUN 21 and creatinine 0.76 AST 50 ALT 44 alk phos 79 and troponin 0.038 and 0.032 ProBNP 4924 and COVID-19 PCR detected. Pro-calcitonin level is 0.18 04/10/2021 Patient is currently in the select care unit. Awake alert and oriented 3. Requiring oxygen at 5 L via nasal cannula. Patient states that Breathing status is better today. Patient is being continued on dexamethasone and Lovenox. Also on Lasix 40 mg IV daily. Cardiology is on board. Elevated troponin.. 2-D echocardiogram showed ejection fraction 50-55% and no significant valvular abnormalities noted. Laboratory data showed WBC 8.2 hemoglobin 15.6 and platelets 110 BUN 23 and creatinine 0.7 to bicarb is 38 and a chloride 97 sodium 140 potassium 4.6 LDH 761 and CRP 4.5. 04/11/2021 Patient is currently resting in the bed. Feels better. Awake alert and oriented.. Still requiring oxygen at 6 L via nasal cannula. No complaints of chest pain or worsening shortness breath. Patient otherwise very lethargic. Currently being continued on Lasix IV daily and also Decadron. Continued on multivitamins for Covid. Laboratory data showed sodium 139 potassium 4.7 BUN 2020 creatinine 0.59 LDH 795 and CRP 6.9 Pulmonary and cardiology is on board. Current medications reviewed. Objective - Vital Signs Vital signs: Vital Signs Temp 98.8 F 04/11/21 12:00 Pulse 85 04/11/21 12:00 Resp 18 04/11/21 12:00 BP 128/69 04/11/21 12:00 Pulse Ox 89 L 04/11/21 12:00 Intake & Output 04/10/21 04/11/21 04/11/21 18:59 06:59 18:59 Intake Total 720 0 Output Total 600 750 Balance 720 -600 -750 Intake: Oral 720 0 Output: Urine 600 750 Other: Voiding Method Toilet Toilet Toilet # Voids 1 - Exam PHYSICAL EXAMINATION: Patient is lying in the bed comfortably, no acute distress, awake alert and oriented. On NC now.. HEENT: Normocephalic. Neck is supple. Pupils reactive. Nostrils clear. Oral cavity is moist. Neck reveals no JVD, carotid bruits, or thyromegaly. CHEST EXAMINATION: Trachea is central. Symmetrical expansion. Bilateral diminished air entry and scattered coarse sounds.. CARDIAC: Normal S1, S2 with no gallops. No murmurs ABDOMEN: Soft. Bowel sounds normal. No organomegaly. No abdominal bruits. Extremities: Bilateral lower extremity trace edema. No clubbing or cyanosis Neurologically awake, alert, oriented x3 with well-coordinated movements. No focal deficits noted Skin: No rash or skin lesions. Psychiatric: Coperative. Nonsuicidal Musculoskeletal: No joint swelling or deformity. Normal range of motion. - Labs CBC & Chem 7: 04/10/21 09:01 04/11/21 11:21 Labs: Abnormal Lab Results - Last 24 Hours (Table) 04/10/21 04/10/21 04/10/21 Range/Units 09:01 16:40 20:09 Lymphocytes # 0.7 L (1.0-4.8) k/uL Chloride (98-107) mmol/L Carbon Dioxide (22-30) mmol/L BUN (7-17) mg/dL Glucose (74-99) mg/dL POC Glucose (mg/dL) 113 H 107 H (75-99) mg/dL Calcium (8.4-10.2) mg/dL Lactate Dehydrogenase (313-618) U/L C-Reactive Protein (<1.0) mg/dL 04/11/21 04/11/21 Range/Units 11:21 11:46 Lymphocytes # (1.0-4.8) k/uL Chloride 95 L (98-107) mmol/L Carbon Dioxide 39 H (22-30) mmol/L BUN 22 H (7-17) mg/dL Glucose 120 H (74-99) mg/dL POC Glucose (mg/dL) 150 H (75-99) mg/dL Calcium 8.0 L (8.4-10.2) mg/dL Lactate Dehydrogenase 797 H (313-618) U/L C-Reactive Protein 6.9 H (<1.0) mg/dL Assessment and Plan Assessment: Acute hypoxic and hypercapnic respiratory failure secondary to COVID-19 pneumonia requiring nonrebreather on admission. Pulse ox was 57% on room air on admission. Currently on 6 L via nasal cannula. Acute COVID-19 pneumonia. Symptoms for the past 5 days. Patient is not vaccinated. Elevated troponin level likely due to demand mismatch. Acute CHF with preserved EF. Morbid obesity BMI 72.3 Obesity hypoventilation syndrome with suspected chronic hypoxemia. Currently not on oxygen at home. Chronic bilateral lower extremity edema DVT prophylaxis. Plan: Patient will be continued on oxygen supplementation via nasal cannula.. Co ntinue with the Decadron, Lovenox and multivitamins. Patient being continued on daily IV Lasix. Pulmonary is on board. Cardiology was consulted due to elevated troponin level. 2-D echo cardiac was ordered. Showed normal EF. Currently patient denied any chest pain. Continue to follow closely and prognosis is guarded at this time. Time with Patient: Greater than 30
--- NOTE | 2021-04-12 22:25 | P.PN ---
Subjective Progress Note Date: 04/12/21 Principal diagnosis: Acute hypoxic respiratory failure secondary to COVID-19 pneumonia Patient is a 60-year-old with a known history of morbid obesity and obesity hypoventilation and chronic lower extremity edema presents to ER with the complaints of worsening shortness of breath for the past 5 days. Patient started having cold-like symptoms. Due to worsening symptoms patient went to see her PCP and was found to be hypoxic with pulse ox. 50 % and also had purple discoloration. Patient refused EMS transfer. Otherwise patient has been afebrile. No complaints of chest pain. Does have cough without sputum production. Patient otherwise denied any nausea or vomiting. Her taste felt different this morning. On admission blood pressure 172/88 pulse 83 respirations 24 and pulse ox 97% on room air. Patient was awake and alert and oriented. Patient was placed on her person nontender with a and pulse ox went up to 96%. Chest x-ray showed cardiomegaly with bilateral multifocal mild to lower lung opacities. Correlate exclude COVID-[address] angiogram of the chest is suboptimal study without central pulmonary embolism. Laboratory data showed WBC 8.3 hemoglobin 16.1 and platelets 128 Lymphocytes 0.8 and d-dimer is 2.54 ABG showed pH of 7.26 pCO2 82 pO2 145 Sodium 139 potassium 4.7 chloride 100 bicarb is 33 BUN 21 and creatinine 0.76 AST 50 ALT 44 alk phos 79 and troponin 0.038 and 0.032 ProBNP 4924 and COVID-19 PCR detected. Pro-calcitonin level is 0.18 04/10/2021 Patient is currently in the select care unit. Awake alert and oriented 3. Requiring oxygen at 5 L via nasal cannula. Patient states that Breathing status is better today. Patient is being continued on dexamethasone and Lovenox. Also on Lasix 40 mg IV daily. Cardiology is on board. Elevated troponin.. 2-D echocardiogram showed ejection fraction 50-55% and no significant valvular abnormalities noted. Laboratory data showed WBC 8.2 hemoglobin 15.6 and platelets 110 BUN 23 and creatinine 0.7 to bicarb is 38 and a chloride 97 sodium 140 potassium 4.6 LDH 761 and CRP 4.5. 04/11/2021 Patient is currently resting in the bed. Feels better. Awake alert and oriented.. Still requiring oxygen at 6 L via nasal cannula. No complaints of chest pain or worsening shortness breath. Patient otherwise very lethargic. Currently being continued on Lasix IV daily and also Decadron. Continued on multivitamins for Covid. Laboratory data showed sodium 139 potassium 4.7 BUN 2020 creatinine 0.59 LDH 795 and CRP 6.9 Pulmonary and cardiology is on board. 04/12/2021 Patient is currently resting in the bed. Seems to be lethargic. Apparently patient sat on the toilet and fell to the side. Denies any complaints of pain. Patient was encouraged to use BiPAP. Patient is being current on IV Lasix for diuresis. Change to 20 mg IV daily. Patient is also on dexamethasone Lovenox and multivitamins and oxygen supplementation. Follow-up CBC and BMP tomorrow. Pulmonary and cardiology is on board. Current medications reviewed. Objective - Vital Signs Vital signs: Vital Signs Temp 98.1 F 04/12/21 16:00 Pulse 80 04/12/21 16:00 Resp 20 04/12/21 16:00 BP 134/72 04/12/21 16:00 Pulse Ox 92 L 04/12/21 17:20 Intake & Output 04/12/21 04/12/21 04/13/21 06:59 18:59 06:59 Intake Total 354 Output Total 600 600 Balance -600 -246 Weight 186.5 kg Intake: Oral 354 Output: Urine 600 600 Other: Voiding Method Toilet Toilet - Exam PHYSICAL EXAMINATION: Patient is lying in the bed comfortably, no acute distress, awake alert and oriented. On NC now.. HEENT: Normocephalic. Neck is supple. Pupils reactive. Nostrils clear. Oral cavity is moist. Neck reveals no JVD, carotid bruits, or thyromegaly. CHEST EXAMINATION: Trachea is central. Symmetrical expansion. Bilateral diminished air entry and scattered coarse sounds.. CARDIAC: Normal S1, S2 with no gallops. No murmurs ABDOMEN: Soft. Bowel sounds normal. No organomegaly. No abdominal bruits. Extremities: Bilateral lower extremity trace edema. No clubbing or cyanosis Neurologically awake, alert, oriented x3 with well-coordinated movements. No focal deficits noted Skin: No rash or skin lesions. Psychiatric: Coperative. Nonsuicidal Musculoskeletal: No joint swelling or deformity. Normal range of motion. - Labs CBC & Chem 7: 04/10/21 09:01 04/11/21 11:21 Labs: Abnormal Lab Results - Last 24 Hours (Table) 04/11/21 04/12/21 04/12/21 Range/Units 22:46 06:19 11:18 POC Glucose (mg/dL) 109 H 106 H 127 H (75-99) mg/dL 04/12/21 04/12/21 Range/Units 16:18 20:02 POC Glucose (mg/dL) 118 H 134 H (75-99) mg/dL Assessment and Plan Assessment: Acute hypoxic and hypercapnic respiratory failure secondary to COVID-19 pneumonia requiring nonrebreather on admission. Pulse ox was 57% on room air on admission. Currently on 6 L via nasal cannula. Acute COVID-19 pneumonia. Symptoms for the past 5 days. Patient is not vaccinated. Elevated troponin level likely due to demand mismatch. Acute CHF with preserved EF. Morbid obesity BMI 72.3 Obesity hypoventilation syndrome with suspected chronic hypoxemia. Currently not on oxygen at home. Chronic bilateral lower extremity edema DVT prophylaxis. Plan: Patient will be continued on oxygen supplementation via nasal cannula.. Continue with the Decadron, Lovenox and multivitamins. Patient being continued on daily IV Lasix. Pulmonary is on board. Cardiology was consulted due to elevated troponin level. 2-D echo cardiac was ordered. Showed normal EF. Currently patient denied any chest pain. Continue to follow closely and prognosis is guarded at this time.
[2021-04-13 06:27] LABS: Glucose,Whole Blood 95 mg/dL (75-99)
--- NOTE | 2021-04-13 06:41 | XR ---
EXAMINATION TYPE: XR chest 1V portable DATE OF EXAM: 04/13/2021 CLINICAL HISTORY: Difficulty breathing and covid pneumonia progress study. TECHNIQUE: Single AP portable upright view of the chest is obtained. COMPARISON: Chest x-ray and CTA chest from 4 days earlier FINDINGS: Bilateral multifocal and confluent opacities redemonstrated. Stable mild cardiomegaly. Ove rlying EKG leads redemonstrated. Underlying scoliotic curvature with degenerative spurring in the spi ne redemonstrated. IMPRESSION: Mild cardiomegaly with bilateral multifocal and confluent opacities with relative sparing of the left upper lung redemonstrated. Findings consistent with covid-19 infection, no significant c hange from prior studies 4 days earlier.
[2021-04-13 08:34] LABS: Sodium 139 mmol/L (137-145)
[2021-04-13 08:37] LABS: African American GFR (CKD) >90 (>60 ml/min/1.73 sqM); Anion Gap 6 mmol/L; Blood Urea Nitrogen 19 mg/dL (7-17); Calcium 8.3 mg/dL (8.4-10.2); Carbon Dioxide 40 mmol/L (22-30); Chloride 93 mmol/L (98-107); Glucose 134 mg/dL (74-99); Non-African American GFR(CKD) >90 (>60 ml/min/1.73 sqM); Potassium 4.5 mmol/L (3.5-5.1)
[2021-04-13 08:45] LABS: Anisocytosis Slight; Basophils % (A) 0 %; Eosinophils % (A) 1 %; HCT 51.7 % (34.0-46.0); HGB 16.9 gm/dL (11.4-16.0); Hypochromasia Slight; Lymphocytes # (A) 0.3 k/uL (1.0-4.8); Lymphocytes % (A) 8 %; MCH 29.1 pg (25.0-35.0); MCHC 32.6 g/dL (31.0-37.0); MCV 89.2 fL (80.0-100.0); Mean Platelet Volume 9.3; Monocytes # (A) 0.2 k/uL (0-1.0); Monocytes % (A) 4 %; Neutrophils # (A) 3.9 k/uL (1.3-7.7); Neutrophils % (A) 87 %; RDW 16.4 % (11.5-15.5); WBC 4.5 k/uL (3.8-10.6)
[2021-04-13] MEDS: ENOXAPARIN 40 MG/0.4 ML SYRINGE SQ SCH (10:22)
[2021-04-13] MEDS: METOPROLOL TARTRATE 25 MG TAB PO SCH ×2 (10:22→20:02)
[2021-04-13] MEDS: amLODIPine 10 MG TAB PO SCH (10:22)
[2021-04-13] MEDS: CHOLECALCIFEROL 25 MCG (1000 IU) TABLET PO SCH (10:22)
[2021-04-13] MEDS: ASPIRIN 81 MG PO SCH (10:22)
[2021-04-13] MEDS: ASCORBIC ACID 500 MG TAB PO SCH ×2 (10:22→10:24)
[2021-04-13] MEDS: DEXAMETHASONE SOD PHOSPHATE 10 MG/ML 1 ML VIAL IVP SCH (10:23)
[2021-04-13] MEDS: FUROSEMIDE 10 MG/ML 2 ML VIAL IV SCH (10:23)
[2021-04-13] MEDS: ZINC SULFATE 220 MG CAP PO SCH (10:23)
[2021-04-13 10:25] LABS: Platelet Count 86 k/uL (150-450)
[2021-04-13 10:26] LABS: Poikilocytosis (M) Present
--- NOTE | 2021-04-13 10:26 | P.PN ---
Subjective Progress Note Date: 04/13/21 CHIEF COMPLAINT: Abnormal troponins HISTORY OF PRESENT ILLNESS: This is a 60-year-old female with a past medical history significant for lower extremity edema, obstructive sleep apnea, and morbid obesity. 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 We have been asked to see the patient in consultation for abnormal troponins. The patient came to the hospital with a chief complaint of SOB. She was apparently exposed to people with Covid during Thanksgiving. Patient was hypoxic upon presentation to the hospital. She was found to be positive for Covid. She is unvaccinated. Patient was also found to be in congestive heart failure and was started on IV Lasix 40 mg IV daily per pulmonary. She is currently on 6 L nasal cannula with oxygen saturations greater than 92%. Blood pressure 132/72. Telemetry reveals sinus mechanism with heart rate in the 70s. She is afebrile. DIAGNOSTICS: EKG reveals sinus mechanism with no signs of acute ischemia Chest xray cardiomegaly with bilateral multifocal mid to lower lung opacities. Correlate to exclude COVID-19 infection and current environment. Chest CTA suboptimal study without central pulmonary was in. Cannot exclude smaller segmental and subsegmental PE on this exam. Cardiomegaly with tiny right pleural effusion. Underlying pulmonary hypertension. Some faint multifocal groundglass opacities and organizing consolidations greatest posterior aspect right mid lung suspicious for COVID-19 infection. Reactive thoracic adenopathy thought present. Laboratory data: WBC 8.3. Hemoglobin 16.1. Platelet count 128. D-dimer 2.54. Sodium 139. Potassium 4.7. BUN 21. Creatinine 0.76. Troponin 0.03. 0.032. ProBNP 4920. Current home cardiac medications include Lasix 40 mg twice a day 04/13/2021 Patient remains on the cardiac stepdown unit. Patient remains on 40% BiPAP overnight and 6 L nasal cannula this morning. Blood pressure 144/75. She is afebrile. Chest x-ray this morning reveals mild cardiomegaly with bilateral multifocal confluent opacities with relative sparing of the left upper lung redemonstrated. Echocardiogram completed revealed ejection fraction 55-60%. PHYSICAL EXAM: Thorough physical exam not completed secondary to limited evaluation/examination due to Covid19 ASSESSMENT: Covid 19 Acute hypoxic respiratory failure Abnormal troponins, secondary to type II [place] secondary to hypoxia secondary to Covid Acute congestive heart failure, diastolic Obstructive sleep apnea Morbid obesity PLAN: Discontinue IV lasix. Resume home dose of oral lasix 40mg BID Continue additional cardiac medications Begin aspirin 81mg daily Begin metoprolol tartrate 25 mg twice a day No further inpatient recommendations from a cardiac standpoint. We will sign off. Please reconsult if needed. Nurse practitioner note has been reviewed by physician. Signing provider agrees with the documented findings, assessment, and plan of care. Objective - Vital Signs Vital signs: Vital Signs Temp 97.2 F L 04/13/21 04:00 Pulse 114 H 04/13/21 04:00 Resp 20 04/13/21 04:00 BP 144/75 04/13/21 04:00 Pulse Ox 93 L 04/13/21 04:00 Intake & Output 04/12/21 04/13/21 04/13/21 18:59 06:59 18:59 Intake Total 354 240 Output Total 600 Balance -246 240 Weight 184.5 kg Intake: Oral 354 240 Output: Urine 600 Other: Voiding Method Toilet Toilet - Labs CBC & Chem 7: 04/13/21 07:44 04/13/21 07:44 Labs: Abnormal Lab Results - Last 24 Hours (Table) 04/12/21 04/12/21 04/12/21 Range/Units 11:18 16:18 20:02 RBC (3.80-5.40) m/uL Hgb (11.4-16.0) gm/dL Hct (34.0-46.0) % RDW (11.5-15.5) % Chloride (98-107) mmol/L Carbon Dioxide (22-30) mmol/L BUN (7-17) mg/dL Creatinine (0.52-1.04) mg/dL Glucose (74-99) mg/dL POC Glucose (mg/dL) 127 H 118 H 134 H (75-99) mg/dL Calcium (8.4-10.2) mg/dL 04/13/21 04/13/21 Range/Units 07:44 07:44 RBC 5.80 H (3.80-5.40) m/uL Hgb 16.9 H (11.4-16.0) gm/dL Hct 51.7 H (34.0-46.0) % RDW 16.4 H (11.5-15.5) % Chloride 93 L (98-107) mmol/L Carbon Dioxide 40 H (22-30) mmol/L BUN 19 H (7-17) mg/dL Creatinine 0.50 L (0.52-1.04) mg/dL Glucose 134 H (74-99) mg/dL POC Glucose (mg/dL) (75-99) mg/dL Calcium 8.3 L (8.4-10.2) mg/dL
[2021-04-13 11:51] LABS: Glucose,Whole Blood 95 mg/dL (75-99)
[2021-04-13] MEDS: FUROSEMIDE 40 MG TAB PO SCH (16:19)
[2021-04-13 16:38] LABS: Glucose,Whole Blood 122 mg/dL (75-99)
--- NOTE | 2021-04-13 18:10 | P.PN ---
Subjective Progress Note Date: 04/13/21 Principal diagnosis: Acute hypoxic respiratory failure secondary to COVID-19 pneumonia 60-year-old morbidly obese female patient, with obvious features of obstructive sleep apnea and obesity hypoventilation syndrome and chronic lower extremity edema and possibly some chronic hypoxemia. The patient started getting symptoms of flulike illness approximately 5 days ago. She apparently got exposed to people during Thanksgiving dinner was she visited her brother and ultimately she got sick and she became more short of breath and congested and had increased cough and she came into the emergency with a pulse ox of 60%. At that point, the patient was placed on 100% nonrebreather facemask. Her current pulse ox is around 93%. She short of breath even while talking and she is unable to speak up. Since. Her initial workup showed a chest x-ray that showed cardiomegaly and bilateral pulmonary infiltrates. CT angiogram showed no evidence of any pulmonary embolism. It was a suboptimal study. There was some groundglass changes bilaterally and there was evidence of bilateral pleural effusion and cardiomegaly and I do raises the concern for CHF knowing that the patient's proBNP level was quite elevated. The patient takes Lasix on and up on outpatient basis. Note that his serum bicarb is 33 consistent with chronic hypercapnic respiratory failure and chronic CO2 retention. Renal function stable. Troponin was at 0.03. ProBNP level was 4920, COVID 19 testing was p ositive through a nasal swab by PCR. D-dimer was at 2.5. The white cell count was at 8.3 with a hemoglobin of 16 and the patient had some lymphopenia. She typically does not follow-up with a physician. She does see a holistic person. She doesn't take medication on a regular basis. She has seen Shayy Newell in the past, medical [facility], and the patient is a smoker. She has not been vaccinated. She denies having any chronic form of lung disease or disorder. A 04/10/2021, I'm seeing the patient for a follow-up H is feeling better compared to yesterday. Dr. soriano is also improving. The patient is currently on 5 L of oxygen by nasal cannula and a pulse ox is around 92%. She is having some labored breathing special with dark and movement. The patient is morbidly obese and she has a BMI of 72.3. Note that the blood. This was done and the burst department yesterday showed evidence of an acute on top of chronic hypercapnic respiratory failure with a pH of 7.26 and a pCO2 of 82. This was done 100% FiO2 and the patient had a O2 of 145. For now, the patient remains on IV Lasix. The patient is receiving Lasix 40 mg IV on a daily basis. She is on Lovenox 40 be prophylaxis. Echocardiac Alfred showed a preserved LV function. No signs of any significant pulmonary hypertension. The patient is also on Decadron regarding her COVID 19 related pneumonia. LDH level is at 858, CRP lev el is at 4.3, Pronestyl level is at 0.18. C, 04/11/2021, the patient was complaints. She remains on oxygen at 6 L per minute nasal cannula. She is feeling well. No specific complaints otherwise for now. She is diuresing. Temperature is 98.8. She remains in a negative fluid balance. She remains on a combination of Decadron 6 mg IV every 24 hours and she is also on Lasix 40 g IV every 24 hours. She is also on vitamin C and zinc. No fever. No chills no other complaints otherwise for now. The patient improved calcitonin level of 0.18. Her LDH level remains low at 797. 04/12/2021. The patient for a follow-up. The patient had a episodes of fall yesterday in the bathroom. No major injuries. I was told that are not the patient was found to be very much lethargic and sleepy. Yesterday morning apparently she woke up very much sleepy and somnolent. After being placed on a CPAP/BiPAP, she improved considerably. I have encouraged her to use the BiPAP on a regular basis during her hospital stay. The patient is obvious features obstructive sleep apnea and therefore was probably related to a sleep attack. She is very much sounds are positive. She didn't particularly response to BiPAP therapy. Meanwhile, the patient is still being diuresis IV Lasix. She is also on Decadron 6 mg by mouth daily regarding her COVID 19 related infection/pneumonia. No worsening shortness of breath. No worsening in her oxygenation the patient is on 6 L of oxygen by nasal cannula. Reevaluated today on 04/13/2021, patient seems to be doing a bit better, nonetheless she remains on 5-6 L nasal cannula with O2 sat showed 91%. Clinically she feels better but she generally weak and tired, she has shortness of breath with any activity. Intermittently has been on CPAP/BiPAP, but during my evaluation she was on 6 L nasal cannula. Chest x-ray today showed mild cardiomegaly and bilateral multifocal opacities consistent with COVID-19 infection. Labs from today showed relatively normal CBC and normal electrolytes bicarb is 40 BUN is 19 and creatinine 0.50. Remains on Decadron 6 mg by mouth daily Objective - Vital Signs Vital signs: Vital Signs Temp 98.9 F 04/13/21 16:00 Pulse 86 04/13/21 16:00 Resp 22 04/13/21 16:00 BP 165/78 04/13/21 16:00 Pulse Ox 91 L 04/13/21 16:00 Intake & Output 04/12/21 04/13/21 04/13/21 18:59 06:59 18:59 Intake Total 354 600 Output Total 600 Balance -246 600 Weight 184.5 kg Intake: Oral 354 600 Output: Urine 600 Other: Voiding Method Toilet Toilet # Bowel Movements 1 - Exam General appearance: Healed a 60-year-old female obese, in no distress, on 6 L nasal cannula.. Head exam: Atraumatic, normocephalic. Eye exam: Erler, EOMI, nonicteric, no neck masses, no JVD, no stridor. oropharynxMallampati class IV. Neck eshort obese neck, no neck masses. Lungs:Crackles at the bases, symmetrical chest expansion. Abdomen: Soft nontender no megaly no rebound no guarding. These. Extremities exam: no clubbing edema or cyanosis. . Neurological exam: alert and oriented 3 focal deficits. Psychiatric exam: Normal mood, affect and normal mental status examination. Skin: No rashes. - Labs CBC & Chem 7: 04/13/21 07:44 04/13/21 07:44 Labs: Abnormal Lab Results - Last 24 Hours (Table) 04/12/21 04/13/21 04/13/21 Range/Units 20:02 07:44 07:44 RBC 5.80 H (3.80-5.40) m/uL Hgb 16.9 H (11.4-16.0) gm/dL Hct 51.7 H (34.0-46.0) % RDW 16.4 H (11.5-15.5) % Plt Count 86 L (150-450) k/uL Lymphocytes # 0.3 L (1.0-4.8) k/uL Chloride 93 L (98-107) mmol/L Carbon Dioxide 40 H (22-30) mmol/L BUN 19 H (7-17) mg/dL Creatinine 0.50 L (0.52-1.04) mg/dL Glucose 134 H (74-99) mg/dL POC Glucose (mg/dL) 134 H (75-99) mg/dL Calcium 8.3 L (8.4-10.2) mg/dL 04/13/21 Range/Units 16:37 RBC (3.80-5.40) m/uL Hgb (11.4-16.0) gm/dL Hct (34.0-46.0) % RDW (11.5-15.5) % Plt Count (150-450) k/uL Lymphocytes # (1.0-4.8) k/uL Chloride (98-107) mmol/L Carbon Dioxide (22-30) mmol/L BUN (7-17) mg/dL Creatinine (0.52-1.04) mg/dL Glucose (74-99) mg/dL POC Glucose (mg/dL) 122 H (75-99) mg/dL Calcium (8.4-10.2) mg/dL Assessment and Plan Assessment: Impression: Acute hypoxic respiratory failure secondary to COVID-19 pneumonia Chronic hypoxic and hypercapnic respiratory failure secondary to obesity hypoventilation syndrome and suspect some component of underlying COPD Morbid obesity Chronic cor pulmonale Chronic hypersomnia secondary to obstructive sleep apnea syndrome as well as obesity/hypoventilation syndrome Recommendation: Continue present supportive care measures Continue oxygen Continue BiPAP as needed Titrate FiO2 maintaining O2 session of 90% Continue Lovenox Continue COVID-19 cocktail. Continue to monitor inflammatory markers Will consider discharge planning once the patient is on a lower FiO2 hopefully less than 5 L/m nasal cannula. She will definitely need outpatient follow-up with Dr. Nguyen regarding her obstructive sleep apnea syndrome Time with Patient: Less than 30
[2021-04-13 20:35] LABS: Glucose,Whole Blood 141 mg/dL (75-99)
[2021-04-14 06:16] LABS: Glucose,Whole Blood 93 mg/dL (75-99)
[2021-04-14] MEDS: ASPIRIN 81 MG PO SCH (09:24)
[2021-04-14] MEDS: METOPROLOL TARTRATE 25 MG TAB PO SCH ×2 (09:24→19:26)
[2021-04-14] MEDS: CHOLECALCIFEROL 25 MCG (1000 IU) TABLET PO SCH (09:25)
[2021-04-14] MEDS: amLODIPine 10 MG TAB PO SCH (09:25)
[2021-04-14] MEDS: ZINC SULFATE 220 MG CAP PO SCH (09:25)
[2021-04-14] MEDS: ASCORBIC ACID 500 MG TAB PO SCH ×2 (09:25→19:27)
[2021-04-14] MEDS: DEXAMETHASONE SOD PHOSPHATE 10 MG/ML 1 ML VIAL IVP SCH (09:25)
[2021-04-14] MEDS: FUROSEMIDE 40 MG TAB PO SCH ×2 (09:25→17:41)
[2021-04-14] MEDS: ENOXAPARIN 40 MG/0.4 ML SYRINGE SQ SCH (09:26)
--- NOTE | 2021-04-14 10:03 | P.PN ---
Subjective Progress Note Date: 04/13/21 Principal diagnosis: Acute hypoxic respiratory failure secondary to COVID-19 pneumonia Patient is a 60-year-old with a known history of morbid obesity and obesity hypoventilation and chronic lower extremity edema presents to ER with the complaints of worsening shortness of breath for the past 5 days. Patient started having cold-like symptoms. Due to worsening symptoms patient went to see her PCP and was found to be hypoxic with pulse ox. 50 % and also had purple discoloration. Patient refused EMS transfer. Otherwise patient has been afebrile. No complaints of chest pain. Does have cough without sputum production. Patient otherwise denied any nausea or vomiting. Her taste felt different this morning. On admission blood pressure 172/88 pulse 83 respirations 24 and pulse ox 97% on room air. Patient was awake and alert and oriented. Patient was placed on her person nontender with a and pulse ox went up to 96%. Chest x-ray showed cardiomegaly with bilateral multifocal mild to lower lung opacities. Correlate exclude COVID-[address] angiogram of the chest is suboptimal study without central pulmonary embolism. Laboratory data showed WBC 8.3 hemoglobin 16.1 and platelets 128 Lymphocytes 0.8 and d-dimer is 2.54 ABG showed pH of 7.26 pCO2 82 pO2 145 Sodium 139 potassium 4.7 chloride 100 bicarb is 33 BUN 21 and creatinine 0.76 AST 50 ALT 44 alk phos 79 and troponin 0.038 and 0.032 ProBNP 4924 and COVID-19 PCR detected. Pro-calcitonin level is 0.18 04/10/2021 Patient is currently in the select care unit. Awake alert and oriented 3. Requiring oxygen at 5 L via nasal cannula. Patient states that Breathing status is better today. Patient is being continued on dexamethasone and Lovenox. Also on Lasix 40 mg IV daily. Cardiology is on board. Elevated troponin.. 2-D echocardiogram showed ejection fraction 50-55% and no significant valvular abnormalities noted. Laboratory data showed WBC 8.2 hemoglobin 15.6 and platelets 110 BUN 23 and creatinine 0.7 to bicarb is 38 and a chloride 97 sodium 140 potassium 4.6 LDH 761 and CRP 4.5. 04/11/2021 Patient is currently resting in the bed. Feels better. Awake alert and oriented.. Still requiring oxygen at 6 L via nasal cannula. No complaints of chest pain or worsening shortness breath. Patient otherwise very lethargic. Currently being continued on Lasix IV daily and also Decadron. Continued on multivitamins for Covid. Laboratory data showed sodium 139 potassium 4.7 BUN 2020 creatinine 0.59 LDH 795 and CRP 6.9 Pulmonary and cardiology is on board. 04/12/2021 Patient is currently resting in the bed. Seems to be lethargic. Apparently patient sat on the toilet and fell to the side. Denies any complaints of pain. Patient was encouraged to use BiPAP. Patient is being current on IV Lasix for diuresis. Change to 20 mg IV daily. Patient is also on dexamethasone Lovenox and multivitamins and oxygen supplementation. Follow-up CBC and BMP tomorrow. Pulmonary and cardiology is on board. 04/13/2021 Patient is currently sitting in the chair. Awake and alert. Still having exe rtional dyspnea. Requiring 6 L oxygen where nasal cannula. Patient is also on BiPAP last night. Chest x-ray showed mild cardiomegaly and bilateral multifocal opacities consistent with Covid 19 pneumonia. Patient is being continued on dexamethasone, Lovenox and Lasix 40 mg twice daily. Pulmonary and cardiology on board. Patient has been afebrile. No nausea or vomiting. Tolerating minimal oral d iet. Cough is improved. No complaints of chest pain. No diarrhea. Current medications reviewed. Objective - Vital Signs Vital signs: Vital Signs Temp 100.4 F H 04/13/21 20:00 Pulse 89 04/13/21 20:00 Resp 21 04/13/21 20:00 BP 128/60 04/13/21 20:00 Pulse Ox 93 L 04/13/21 20:00 Intake & Output 04/13/21 04/13/21 04/14/21 06:59 18:59 06:59 Intake Total 600 Output Total 550 Balance 600 -550 Weight 184.5 kg Intake: Oral 600 Output: Urine 550 Other: Voiding Method Toilet # Bowel Movements 1 - Exam PHYSICAL EXAMINATION: Patient is lying in the bed comfortably, no acute distress, awake alert and oriented. On NC now.. HEENT: Normocephalic. Neck is supple. Pupils reactive. Nostrils clear. Oral cavity is moist. Neck reveals no JVD, carotid bruits, or thyromegaly. CHEST EXAMINATION: Trachea is central. Symmetrical expansion. Bilateral diminished air entry and scattered coarse sounds.. CARDIAC: Normal S1, S2 with no gallops. No murmurs ABDOMEN: Soft. Bowel sounds normal. No organomegaly. No abdominal bruits. Extremities: Bilateral lower extremity trace edema. No clubbing or cyanosis Neurologically awake, alert, oriented x3 with well-coordinated movements. No focal deficits noted Skin: No rash or skin lesions. Psychiatric: Coperative. Nonsuicidal Musculoskeletal: No joint swelling or deformity. Normal range of motion. - Labs CBC & Chem 7: 04/13/21 07:44 04/13/21 07:44 Labs: Abnormal Lab Results - Last 24 Hours (Table) 04/13/21 04/13/21 04/13/21 Range/Units 07:44 07:44 16:37 RBC 5.80 H (3.80-5.40) m/uL Hgb 16.9 H (11.4-16.0) gm/dL Hct 51.7 H (34.0-46.0) % RDW 16.4 H (11.5-15.5) % Plt Count 86 L (150-450) k/uL Lymphocytes # 0.3 L (1.0-4.8) k/uL Chloride 93 L (98-107) mmol/L Carbon Dioxide 40 H (22-30) mmol/L BUN 19 H (7-17) mg/dL Creatinine 0.50 L (0.52-1.04) mg/dL Glucose 134 H (74-99) mg/dL POC Glucose (mg/dL) 122 H (75-99) mg/dL Calcium 8.3 L (8.4-10.2) mg/dL 04/13/21 Range/Units 20:33 RBC (3.80-5.40) m/uL Hgb (11.4-16.0) gm/dL Hct (34.0-46.0) % RDW (11.5-15.5) % Plt Count (150-450) k/uL Lymphocytes # (1.0-4.8) k/uL Chloride (98-107) mmol/L Carbon Dioxide (22-30) mmol/L BUN (7-17) mg/dL Creatinine (0.52-1.04) mg/dL Glucose (74-99) mg/dL POC Glucose (mg/dL) 141 H (75-99) mg/dL Calcium (8.4-10.2) mg/dL Assessment and Plan Assessment: Acute hypoxic and hypercapnic respiratory failure secondary to COVID-19 pneumonia requiring nonrebreather on admission. Pulse ox was 57% on room air on admission. Currently on 6 L via nasal cannula. Acute COVID-19 pneumonia. Symptoms for the past 5 days. Patient is not vaccinated. Elevated troponin level likely due to demand mismatch. Acute CHF with preserved EF. Morbid obesity BMI 72.3 Obesity hypoventilation syndrome with suspected chronic hypoxemia. Currently not on oxygen at home. Chronic bilateral lower extremity edema DVT prophylaxis. Plan: Patient will be continued on oxygen supplementation via nasal cannula.. Continue with the Decadron, Lovenox and multivitamins. Patient was on daily IV Lasix. Changed to by mouth 40 mg twice daily. Pulmonary is on board. Cardiology was consulted due to elevated troponin level. 2-D echo cardiac was ordered. Showed normal EF. Currently patient denied any chest pain. Continue to follow closely and prognosis is guarded at this time. Time with Patient: Greater than 30
[2021-04-14 12:26] LABS: Glucose,Whole Blood 122 mg/dL (75-99)
--- NOTE | 2021-04-14 15:46 | P.PN ---
Subjective Progress Note Date: 04/14/21 On 04/14/2021 patient seen in follow-up on selective care unit. She is awake and alert, in no acute distress, she is currently on 6 L of oxygen her pulse ox is 90-93%, this can probably be further weaned down. Breathing comfortable, overall she is states she is feeling better, at times she has a cough and she is producing some brown colored phlegm. She's been afebrile, hemodynamically she has been stable, no complaints of chest discomfort. No fever or chills overnight. She remains on oral diuretics as well, she is in negative fluid balance, over the last 24 hours she is in negative 200 not fluid balance, however her weight is down by 2.5 kg in the last 24 hours, trace pretibial edema remains, overall significantly improved since admission. Patient has been going on BiPAP support at bedtime and as needed, tolerates it well, FiO2 is 40%. Last chest x-ray from yesterday showed mild cardiomegaly and bilateral multifocal confluent opacities with relative sparing of the left upper lung, findings are consistent with a known history of COVID-19 infection. No significant change from prior exam. Patient remains on IV Decadron 6 mg daily, prophylactic Lovenox. Angiogram of the chest was a suboptimal study without evidence of central pulmonary embolism. Pro-calcitonin level was negative on admission. Overall clinically patient looks better, and her FiO2 requirements have significantly decreased Objective - Vital Signs Vital signs: Vital Signs Temp 98.1 F 04/14/21 12:00 Pulse 86 04/14/21 14:00 Resp 18 04/14/21 14:00 BP 137/69 04/14/21 12:00 Pulse Ox 90 L 04/14/21 12:00 Intake & Output 04/13/21 04/14/21 04/14/21 18:59 06:59 18:59 Intake Total 600 417 Output Total 800 Balance 600 -800 417 Weight 182 kg Intake: Oral 600 417 Output: Urine 800 Other: Voiding Method Toilet # Voids 1 # Bowel Movements 1 1 - Exam GENERAL EXAM: Alert, very pleasant, 60-year-old morbidly obese white female, on 6 L of oxygen with pulse ox of 90-93%, sitting up in the recliner, breathing comfortably, comfortable in no apparent distress. HEAD: Normocephalic/atraumatic. EYES: Normal reaction of pupils, equal size. Conjunctiva pink, sclera white. NOSE: Clear with pink turbinates. THROAT: No erythema or exudates. NECK: No masses, no JVD, no thyroid enlargement, no adenopathy. CHEST: No chest wall deformity. Symmetrical expansion. LUNGS: Equal air entry with minor crackles at the bases CVS: Regular rate and rhythm, normal S1 and S2, no gallops, no murmurs, no rubs ABDOMEN: Soft, nontender. No hepatosplenomegaly, normal bowel sounds, no guarding or rigidity. EXTREMITIES: No clubbing, trace pretibial edema, no cyanosis, 2+ pulses and upper and lower extremities. MUSCULOSKELETAL: Muscle strength and tone normal. SPINE: No scoliosis or deformity SKIN: No rashes CENTRAL NERVOUS SYSTEM: Alert and oriented -3. No focal deficits, tone is normal in all 4 extremities. PSYCHIATRIC: Alert and oriented -3. Appropriate affect. Intact judgment and insight. - Labs CBC & Chem 7: 04/13/21 07:44 04/13/21 07:44 Labs: Abnormal Lab Results - Last 24 Hours (Table) 04/13/21 04/13/21 04/14/21 Range/Units 16:37 20:33 12:15 POC Glucose (mg/dL) 122 H 141 H 122 H (75-99) mg/dL Assessment and Plan Plan: Assessment: #1. Acute hypoxic respiratory failure related to acute COVID-19 related pneumonia. Patient presented to the hospital with a 5 day history of symptoms, and she is not vaccinated against COVID-19. #2. Suspect a component of chronic hypoxic respiratory failure related to obstructive sleep apnea and obesity hypoventilation syndrome, with chronic lower extremity edema #3. Metabolic alkalosis, likely chronic #4. Chronic lower extremity edema #5. Morbid obesity with BMI of 73 kg/m with typical features of symptomatic obstructive sleep apnea #6. Elevated troponin without any acute ischemic changes, please refer to cardiology consultation #7. Preserved left ventricular ejection fraction #8. Chronic hypersomnia related to obstructive sleep apnea #9. Elevated d-dimer, without CTA evidence of pulmonary embolism although this was a suboptimal study #10. Acute exacerbation of CHF, diastolic #11. Increased inflammatory markers related to viral pneumonia, improving Plan: Continue weaning FiO2, currently down to 6 L, keep O2 sat saturation is at or around 88-90% BiPAP support at bedtime and as needed for shortness of breath Continue current medical treatment with Decadron, prophylactic Lovenox Continue COVID-19 vitamins We'll obtain follow-up d-dimer, inflammatory markers, follow-up chest x-ray tomorrow Increase activity as tolerated With the patient is less then 5 L of supplemental oxygen may be considered for discharge home I performed a history & physical examination of the patient and discussed their management with my nurse practitioner, Sydney Simon. I reviewed the nurse practitioner's note and agree with the documented findings and plan of care. Lung sounds are positive for diminished breath sounds, basilar crackles throughout the lung khoury. The findings and the impression was discussed with the patient. I attest to the documentation by the nurse practitioner. Time with Patient: Less than 30
[2021-04-14 16:44] LABS: Glucose,Whole Blood 141 mg/dL (75-99)
[2021-04-14 20:16] LABS: Glucose,Whole Blood 113 mg/dL (75-99)
[2021-04-15 06:24] LABS: Glucose,Whole Blood 94 mg/dL (75-99)
[2021-04-15 07:08] LABS: African American GFR (CKD) >90 (>60 ml/min/1.73 sqM); Blood Urea Nitrogen 19 mg/dL (7-17); Calcium 8.4 mg/dL (8.4-10.2); Chloride 88 mmol/L (98-107); Glucose 100 mg/dL (74-99); LDH 747 U/L (313-618); Non-African American GFR(CKD) >90 (>60 ml/min/1.73 sqM); Potassium 4.2 mmol/L (3.5-5.1); Sodium 138 mmol/L (137-145)
[2021-04-15 07:15] LABS: Anion Gap 3 mmol/L
[2021-04-15 07:16] LABS: Carbon Dioxide 47 mmol/L (22-30)
--- NOTE | 2021-04-15 08:18 | XR ---
EXAMINATION TYPE: XR chest 1V portable DATE OF EXAM: 04/15/2021 COMPARISON: Chest x-ray 04/13/2021 HISTORY: Covid pneumonia TECHNIQUE: Single frontal view of the chest is obtained. FINDINGS: Findings are similar to prior exam. There are overlying artifacts, patient is rotated. No pneumothorax or pleural effusion is evident. Prominence of the pulmonary artery noted. There is a spi nal curvature. Bilateral airspace disease again seen. IMPRESSION: Correlate for pneumonia, pulmonary artery hypertension.
[2021-04-15 09:05] LABS: C Reactive Protein 7.9 mg/dL (<1.0)
[2021-04-15] MEDS: ASCORBIC ACID 500 MG TAB PO SCH ×2 (09:58→19:49)
[2021-04-15] MEDS: METOPROLOL TARTRATE 25 MG TAB PO SCH ×2 (09:58→19:49)
[2021-04-15] MEDS: FUROSEMIDE 40 MG TAB PO SCH ×2 (09:58→17:12)
[2021-04-15] MEDS: CHOLECALCIFEROL 25 MCG (1000 IU) TABLET PO SCH (09:58)
[2021-04-15] MEDS: DEXAMETHASONE SOD PHOSPHATE 10 MG/ML 1 ML VIAL IVP SCH (09:58)
[2021-04-15] MEDS: ASPIRIN 81 MG PO SCH (09:58)
[2021-04-15] MEDS: amLODIPine 10 MG TAB PO SCH (09:58)
[2021-04-15] MEDS: ZINC SULFATE 220 MG CAP PO SCH (09:58)
[2021-04-15] MEDS: ENOXAPARIN 40 MG/0.4 ML SYRINGE SQ SCH (09:59)
[2021-04-15 11:44] LABS: Glucose,Whole Blood 115 mg/dL (75-99)
[2021-04-15 13:21] VITALS: BMI 69.6
--- NOTE | 2021-04-15 15:49 | P.PN ---
Subjective Progress Note Date: 04/15/21 On 04/14/2021 patient seen in follow-up on selective care unit. She is awake and alert, in no acute distress, she is currently on 6 L of oxygen her pulse ox is 90-93%, this can probably be further weaned down. Breathing comfortable, overall she is states she is feeling better, at times she has a cough and she is producing some brown colored phlegm. She's been afebrile, hemodynamically she has been stable, no complaints of chest discomfort. No fever or chills overnight. She remains on oral diuretics as well, she is in negative fluid balance, over the last 24 hours she is in negative 200 not fluid balance, however her weight is down by 2.5 kg in the last 24 hours, trace pretibial edema remains, overall significantly improved since admission. Patient has been going on BiPAP support at bedtime and as needed, tolerates it well, FiO2 is 40%. Last chest x-ray from yesterday showed mild cardiomegaly and bilateral multifocal confluent opacities with relative sparing of the left upper lung, findings are consistent with a known history of COVID-19 infection. No significant change from prior exam. Patient remains on IV Decadron 6 mg daily, prophylactic Lovenox. Angiogram of the chest was a suboptimal study without evidence of central pulmonary embolism. Pro-calcitonin level was negative on admission. Overall clinically patient looks better, and her FiO2 requirements have significantly decreased On 04/15/2021 patient seen in follow-up on selective care unit. Patient is awake and alert, she is breathing comfortably, she is currently down to 4 L of oxygen, earlier on 5 L of oxygen her pulse ox was 90%, she has been wearing BiPAP support intermittently during the day and at bedtime, breathing comfortably, overall improved since admission, afebrile, hemodynamically she's been stable, minimal crackles at bilateral bases, she remains on oral diuretics with Lasix 40 mg twice daily. She remains on Decadron 6 mg daily, and prophylactic Lovenox. Today's labs have been reviewed, d-dimer is 3.91, sodium is 138, potassium is 4.2, chloride is 88, CO2 is 47, BUN is 19 creatinine 0.60, inflammatory markers are relatively stable with LDH of 747, and CRP of 7.9. Today's chest x-ray shows prominence of pulmonary artery, bilateral airspace disease, stable in appearance. Objective - Vital Signs Vital signs: Vital Signs Temp 98.4 F 04/15/21 08:00 Pulse 90 04/15/21 14:00 Resp 20 04/15/21 08:00 BP 161/72 04/15/21 08:00 Pulse Ox 90 L 04/15/21 08:00 Intake & Output 04/14/21 04/15/21 04/15/21 18:59 06:59 18:59 Intake Total 597 354 Output Total 900 Balance 597 -900 354 Weight 184 kg 184 kg Intake: Oral 597 354 Output: Urine 900 Other: Voiding Method Toilet Toilet # Voids 1 2 # Bowel Movements 1 - Exam GENERAL EXAM: Alert, very pleasant, 60-year-old morbidly obese white female, on 4 L of oxygen with pulse ox of 90-93%, sitting up in the recliner, breathing comfortably, comfortable in no apparent distress. HEAD: Normocephalic/atraumatic. EYES: Normal reaction of pupils, equal size. Conjunctiva pink, sclera white. NOSE: Clear with pink turbinates. THROAT: No erythema or exudates. NECK: No masses, no JVD, no thyroid enlargement, no adenopathy. CHEST: No chest wall deformity. Symmetrical expansion. LUNGS: Equal air entry with minor crackles at the bases CVS: Regular rate and rhythm, normal S1 and S2, no gallops, no murmurs, no rubs ABDOMEN: Soft, nontender. No hepatosplenomegaly, normal bowel sounds, no guarding or rigidity. EXTREMITIES: No clubbing, trace pretibial edema, no cyanosis, 2+ pulses and upper and lower extremities. MUSCULOSKELETAL: Muscle strength and tone normal. SPINE: No scoliosis or deformity SKIN: No rashes CENTRAL NERVOUS SYSTEM: Alert and oriented -3. No focal deficits, tone is normal in all 4 extremities. PSYCHIATRIC: Alert and oriented -3. Appropriate affect. Intact judgment and insight. - Labs CBC & Chem 7: 04/13/21 07:44 04/15/21 06:14 Labs: Abnormal Lab Results - Last 24 Hours (Table) 04/14/21 04/14/21 04/15/21 Range/Units 16:40 20:15 06:14 D-Dimer 3.91 H (<0.60) mg/L FEU Chloride (98-107) mmol/L Carbon Dioxide (22-30) mmol/L BUN (7-17) mg/dL Glucose (74-99) mg/dL POC Glucose (mg/dL) 141 H 113 H (75-99) mg/dL Lactate Dehydrogenase (313-618) U/L C-Reactive Protein (<1.0) mg/dL 04/15/21 04/15/21 Range/Units 06:14 11:31 D-Dimer (<0.60) mg/L FEU Chloride 88 L (98-107) mmol/L Carbon Dioxide 47 H* (22-30) mmol/L BUN 19 H (7-17) mg/dL Glucose 100 H (74-99) mg/dL POC Glucose (mg/dL) 115 H (75-99) mg/dL Lactate Dehydrogenase 747 H (313-618) U/L C-Reactive Protein 7.9 H (<1.0) mg/dL Assessment and Plan Plan: Assessment: #1. Acute hypoxic respiratory failure related to acute COVID-19 related pne umonia. Patient presented to the hospital with a 5 day history of symptoms, and she is not vaccinated against COVID-19. #2. Suspect a component of chronic hypoxic respiratory failure related to ob structive sleep apnea and obesity hypoventilation syndrome, with chronic lower extremity edema #3. Metabolic alkalosis, likely chronic #4. Chronic lower extremity edema #5. Morbid obesity with BMI of 73 kg/m with typical features of symptomatic obstructive sleep apnea #6. Elevated troponin without any acute ischemic changes, please refer to cardiology consultation #7. Preserved left ventricular ejection fraction #8. Chronic hypersomnia related to obstructive sleep apnea #9. Elevated d-dimer, without CTA evidence of pulmonary embolism although this was a suboptimal study #10. Acute exacerbation of CHF, diastolic #11. Increased inflammatory markers related to viral pneumonia, improving Plan: Continue weaning FiO2, currently down to 4 L, keep O2 sat saturation is at or ar ound 88-90% BiPAP support at bedtime and as needed for shortness of breath Today's x-ray showing stable bilateral airspace disease Clinically patient is improving No worsening dyspnea or hypoxia Continue oral diuretics, Decadron and prophylactic Lovenox Increase activity as tolerated If continues to be stable and require less then 5 L of oxygen will start planning for discharge home tomorrow Prescription has been given for home oxygen to discharge planning for possible discharge in a.m. I performed a history & physical examination of the patient and discussed their management with my nurse practitioner, Sydney Simon. I reviewed the nurse practitioner's note and agree with the documented findings and plan of care. Lung sounds are positive for diminished breath sounds, basilar crackles throughout the lung khoury. The findings and the impression was discussed with the patient. I attest to the documentation by the nurse practitioner. Time with Patient: Less than 30
[2021-04-15 16:46] LABS: Glucose,Whole Blood 164 mg/dL (75-99)
[2021-04-15 20:18] LABS: Glucose,Whole Blood 223 mg/dL (75-99)
[2021-04-16 05:52] LABS: Glucose,Whole Blood 88 mg/dL (75-99)
[2021-04-16 08:35] LABS: ALT 67 U/L (4-34); African American GFR (CKD) >90 (>60 ml/min/1.73 sqM); Blood Urea Nitrogen 22 mg/dL (7-17); Calcium 8.6 mg/dL (8.4-10.2); Chloride 94 mmol/L (98-107); Glucose 90 mg/dL (74-99); Non-African American GFR(CKD) >90 (>60 ml/min/1.73 sqM); Sodium 140 mmol/L (137-145); Total Bilirubin 1.1 mg/dL (0.2-1.3)
[2021-04-16 08:58] LABS: Anion Gap 7 mmol/L; Carbon Dioxide 39 mmol/L (22-30)
[2021-04-16 09:08] LABS: Potassium 5.1 mmol/L (3.5-5.1); Total Protein 6.9 g/dL (6.3-8.2)
[2021-04-16 09:09] LABS: AST 80 U/L (14-36); Alkaline Phosphatase 50 U/L (38-126); LDH 1024 U/L (313-618)
[2021-04-16 09:33] LABS: C Reactive Protein 5.4 mg/dL (<1.0)
[2021-04-16 09:47] LABS: Anisocytosis Slight; Basophils # (A) 0.1 k/uL (0-0.2); Basophils % (A) 2 %; Eosinophils % (A) 1 %; HGB 18.1 gm/dL (11.4-16.0); Hypochromasia Marked; Lymphocytes # (A) 0.6 k/uL (1.0-4.8); Lymphocytes % (A) 14 %; MCH 27.7 pg (25.0-35.0); MCHC 29.7 g/dL (31.0-37.0); MCV 93.3 fL (80.0-100.0); Mean Platelet Volume 9.9; Monocytes # (A) 0.3 k/uL (0-1.0); Monocytes % (A) 7 %; Neutrophils # (A) 2.8 k/uL (1.3-7.7); Neutrophils % (A) 71 %; Platelet Count 121 k/uL (150-450); RBC 6.52 m/uL (3.80-5.40); WBC 3.9 k/uL (3.8-10.6)
[2021-04-16 10:05] LABS: HCT 60.8 % (34.0-46.0)
[2021-04-16] MEDS: ASPIRIN 81 MG PO SCH (10:23)
[2021-04-16] MEDS: ZINC SULFATE 220 MG CAP PO SCH (10:23)
[2021-04-16] MEDS: CHOLECALCIFEROL 25 MCG (1000 IU) TABLET PO SCH (10:23)
[2021-04-16] MEDS: METOPROLOL TARTRATE 25 MG TAB PO SCH (10:23)
[2021-04-16] MEDS: amLODIPine 10 MG TAB PO SCH (10:23)
[2021-04-16] MEDS: FUROSEMIDE 40 MG TAB PO SCH ×2 (10:23→16:59)
[2021-04-16] MEDS: ASCORBIC ACID 500 MG TAB PO SCH (10:24)
[2021-04-16] MEDS: DEXAMETHASONE SOD PHOSPHATE 10 MG/ML 1 ML VIAL IVP SCH (10:24)
[2021-04-16] MEDS: ENOXAPARIN 40 MG/0.4 ML SYRINGE SQ SCH (10:24)
--- NOTE | 2021-04-16 11:26 | P.PN ---
Subjective Progress Note Date: 04/14/21 Principal diagnosis: Acute hypoxic respiratory failure secondary to COVID-19 pneumonia Patient is a 60-year-old with a known history of morbid obesity and obesity hypoventilation and chronic lower extremity edema presents to ER with the complaints of worsening shortness of breath for the past 5 days. Patient started having cold-like symptoms. Due to worsening symptoms patient went to see her PCP and was found to be hypoxic with pulse ox. 50 % and also had purple discoloration. Patient refused EMS transfer. Otherwise patient has been afebrile. No complaints of chest pain. Does have cough without sputum production. Patient otherwise denied any nausea or vomiting. Her taste felt different this morning. On admission blood pressure 172/88 pulse 83 respirations 24 and pulse ox 97% on room air. Patient was awake and alert and oriented. Patient was placed on her person nontender with a and pulse ox went up to 96%. Chest x-ray showed cardiomegaly with bilateral multifocal mild to lower lung opacities. Correlate exclude COVID-[address] angiogram of the chest is suboptimal study without central pulmonary embolism. Laboratory data showed WBC 8.3 hemoglobin 16.1 and platelets 128 Lymphocytes 0.8 and d-dimer is 2.54 ABG showed pH of 7.26 pCO2 82 pO2 145 Sodium 139 potassium 4.7 chloride 100 bicarb is 33 BUN 21 and creatinine 0.76 AST 50 ALT 44 alk phos 79 and troponin 0.038 and 0.032 ProBNP 4924 and COVID-19 PCR detected. Pro-calcitonin level is 0.18 04/10/2021 Patient is currently in the select care unit. Awake alert and oriented 3. Requiring oxygen at 5 L via nasal cannula. Patient states that Breathing status is better today. Patient is being continued on dexamethasone and Lovenox. Also on Lasix 40 mg IV daily. Cardiology is on board. Elevated troponin.. 2-D echocardiogram showed ejection fraction 50-55% and no significant valvular abnormalities noted. Laboratory data showed WBC 8.2 hemoglobin 15.6 and platelets 110 BUN 23 and creatinine 0.7 to bicarb is 38 and a chloride 97 sodium 140 potassium 4.6 LDH 761 and CRP 4.5. 04/11/2021 Patient is currently resting in the bed. Feels better. Awake alert and oriented.. Still requiring oxygen at 6 L via nasal cannula. No complaints of chest pain or worsening shortness breath. Patient otherwise very lethargic. Currently being continued on Lasix IV daily and also Decadron. Continued on multivitamins for Covid. Laboratory data showed sodium 139 potassium 4.7 BUN 2020 creatinine 0.59 LDH 795 and CRP 6.9 Pulmonary and cardiology is on board. 04/12/2021 Patient is currently resting in the bed. Seems to be lethargic. Apparently patient sat on the toilet and fell to the side. Denies any complaints of pain. Patient was encouraged to use BiPAP. Patient is being current on IV Lasix for diuresis. Change to 20 mg IV daily. Patient is also on dexamethasone Lovenox and multivitamins and oxygen supplementation. Follow-up CBC and BMP tomorrow. Pulmonary and cardiology is on board. 04/13/2021 Patient is currently sitting in the chair. Awake and alert. Still having exe rtional dyspnea. Requiring 6 L oxygen where nasal cannula. Patient is also on BiPAP last night. Chest x-ray showed mild cardiomegaly and bilateral multifocal opacities consistent with Covid 19 pneumonia. Patient is being continued on dexamethasone, Lovenox and Lasix 40 mg twice daily. Pulmonary and cardiology on board. Patient has been afebrile. No nausea or vomiting. Tolerating minimal oral d iet. Cough is improved. No complaints of chest pain. No diarrhea. 04/14/2021 Patient is currently in the select care unit. Sitting in the chair. Awake alert and oriented. Mild exertional dyspnea. Requiring oxygen at 6 L via nasal cannula. Breathing is comfortable compared to yesterday. Patient did use BiPAP last night. Patient is being current on dexamethasone, Lovenox subcu. Laboratory data reviewed. Pulmonary is on board. Current medications reviewed. Objective - Vital Signs Vital signs: Vital Signs Temp 98.3 F 04/14/21 04:00 Pulse 79 04/14/21 04:00 Resp 20 04/14/21 04:00 BP 153/79 04/14/21 04:00 Pulse Ox 93 L 04/14/21 04:00 Intake & Output 04/13/21 04/14/21 04/14/21 18:59 06:59 18:59 Intake Total 600 180 Output Total 800 Balance 600 -800 180 Weight 182 kg Intake: Oral 600 180 Output: Urine 800 Other: # Voids 1 # Bowel Movements 1 1 - Exam PHYSICAL EXAMINATION: Patient is lying in the bed comfortably, no acute distress, awake alert and oriented. On NC now.. HEENT: Normocephalic. Neck is supple. Pupils reactive. Nostrils clear. Oral cavity is moist. Neck reveals no JVD, carotid bruits, or thyromegaly. CHEST EXAMINATION: Trachea is central. Symmetrical expansion. Bilateral diminis hed air entry and scattered coarse sounds.. CARDIAC: Normal S1, S2 with no gallops. No murmurs ABDOMEN: Soft. Bowel sounds normal. No organomegaly. No abdominal bruits. Extremities: Bilateral lower extremity trace edema. No clubbing or cyanosis Neurologically awake, alert, oriented x3 with well-coordinated movements. No focal deficits noted Skin: No rash or skin lesions. Psychiatric: Coperative. Nonsuicidal Musculoskeletal: No joint swelling or deformity. Normal range of motion. - Labs CBC & Chem 7: 04/16/21 08:24 04/16/21 07:47 Labs: Abnormal Lab Results - Last 24 Hours (Table) 04/13/21 04/13/21 04/13/21 Range/Units 07:44 16:37 20:33 Plt Count 86 L (150-450) k/uL Lymphocytes # 0.3 L (1.0-4.8) k/uL POC Glucose (mg/dL) 122 H 141 H (75-99) mg/dL Assessment and Plan Assessment: Acute hypoxic and hypercapnic respiratory failure secondary to COVID-19 pneumonia requiring nonrebreather on admission. Pulse ox was 57% on room air on admission. Currently on 6 L via nasal cannula. Acute COVID-19 pneumonia. Symptoms for the past 5 days. Patient is not vaccinated. Elevated troponin level likely due to demand mismatch. Acute CHF with preserved EF. Morbid obesity BMI 72.3 Obesity hypoventilation syndrome with suspected chronic hypoxemia. Currently not on oxygen at home. Chronic bilateral lower extremity edema DVT prophylaxis. Plan: Patient will be continued on oxygen supplementation via nasal cannula.. Currently at 6 L. Titrate down below 5 L. Continue with the Decadron, Lovenox and multivitamins. Patient was on daily IV Lasix. Changed to by mouth 40 mg twice daily. Patient does have a negative fluid balance. Pulmonary is on board. Cardiology was consulted due to elevated troponin level. 2-D echo cardiac was ordered. Showed normal EF. Currently patient denied any chest pain. Continue to follow closely and prognosis is guarded at this time. Time with Patient: Greater than 30
--- NOTE | 2021-04-16 11:29 | P.PN ---
Subjective Progress Note Date: 04/15/21 Principal diagnosis: Acute hypoxic respiratory failure secondary to COVID-19 pneumonia Patient is a 60-year-old with a known history of morbid obesity and obesity hypoventilation and chronic lower extremity edema presents to ER with the complaints of worsening shortness of breath for the past 5 days. Patient started having cold-like symptoms. Due to worsening symptoms patient went to see her PCP and was found to be hypoxic with pulse ox. 50 % and also had purple discoloration. Patient refused EMS transfer. Otherwise patient has been afebrile. No complaints of chest pain. Does have cough without sputum production. Patient otherwise denied any nausea or vomiting. Her taste felt different this morning. On admission blood pressure 172/88 pulse 83 respirations 24 and pulse ox 97% on room air. Patient was awake and alert and oriented. Patient was placed on her person nontender with a and pulse ox went up to 96%. Chest x-ray showed cardiomegaly with bilateral multifocal mild to lower lung opacities. Correlate exclude COVID-[address] angiogram of the chest is suboptimal study without central pulmonary embolism. Laboratory data showed WBC 8.3 hemoglobin 16.1 and platelets 128 Lymphocytes 0.8 and d-dimer is 2.54 ABG showed pH of 7.26 pCO2 82 pO2 145 Sodium 139 potassium 4.7 chloride 100 bicarb is 33 BUN 21 and creatinine 0.76 AST 50 ALT 44 alk phos 79 and troponin 0.038 and 0.032 ProBNP 4924 and COVID-19 PCR detected. Pro-calcitonin level is 0.18 04/10/2021 Patient is currently in the select care unit. Awake alert and oriented 3. Requiring oxygen at 5 L via nasal cannula. Patient states that Breathing status is better today. Patient is being continued on dexamethasone and Lovenox. Also on Lasix 40 mg IV daily. Cardiology is on board. Elevated troponin.. 2-D echocardiogram showed ejection fraction 50-55% and no significant valvular abnormalities noted. Laboratory data showed WBC 8.2 hemoglobin 15.6 and platelets 110 BUN 23 and creatinine 0.7 to bicarb is 38 and a chloride 97 sodium 140 potassium 4.6 LDH 761 and CRP 4.5. 04/11/2021 Patient is currently resting in the bed. Feels better. Awake alert and oriented.. Still requiring oxygen at 6 L via nasal cannula. No complaints of chest pain or worsening shortness breath. Patient otherwise very lethargic. Currently being continued on Lasix IV daily and also Decadron. Continued on multivitamins for Covid. Laboratory data showed sodium 139 potassium 4.7 BUN 2020 creatinine 0.59 LDH 795 and CRP 6.9 Pulmonary and cardiology is on board. 04/12/2021 Patient is currently resting in the bed. Seems to be lethargic. Apparently patient sat on the toilet and fell to the side. Denies any complaints of pain. Patient was encouraged to use BiPAP. Patient is being current on IV Lasix for diuresis. Change to 20 mg IV daily. Patient is also on dexamethasone Lovenox and multivitamins and oxygen supplementation. Follow-up CBC and BMP tomorrow. Pulmonary and cardiology is on board. 04/13/2021 Patient is currently sitting in the chair. Awake and alert. Still having exe rtional dyspnea. Requiring 6 L oxygen where nasal cannula. Patient is also on BiPAP last night. Chest x-ray showed mild cardiomegaly and bilateral multifocal opacities consistent with Covid 19 pneumonia. Patient is being continued on dexamethasone, Lovenox and Lasix 40 mg twice daily. Pulmonary and cardiology on board. Patient has been afebrile. No nausea or vomiting. Tolerating minimal oral d iet. Cough is improved. No complaints of chest pain. No diarrhea. 04/14/2021 Patient is currently in the select care unit. Sitting in the chair. Awake alert and oriented. Mild exertional dyspnea. Requiring oxygen at 6 L via nasal cannula. Breathing is comfortable compared to yesterday. Patient did use BiPAP last night. Patient is being current on dexamethasone, Lovenox subcu. Laboratory data reviewed. Pulmonary is on board. 04/15/2021 Patient is currently resting in the chair. Awake alert and oriented 3. Requiring oxygen at 5 L via nasal cannula. Breathing status is better. Patient did have his BiPAP last night. Otherwise patient is afebrile. No complains of chest pain. No nausea vomiting or abdominal pain or diarrhea. Patient is being current on Lasix 40 mg twice daily. Continued on dexamethasone and Lovenox subcu. Laboratory data showed Laboratory data showed sodium 138 potassium 4.2 chloride 88 bicarb is 47 BUN 19 and creatinine 0.6, LDH 747 and CRP 7.9 Current medications reviewed. Objective - Vital Signs Vital signs: Vital Signs Temp 98.2 F 04/15/21 19:49 Pulse 83 04/15/21 19:49 Resp 21 04/15/21 19:49 BP 162/76 04/15/21 19:49 Pulse Ox 90 L 04/15/21 19:49 Intake & Output 04/15/21 04/15/21 04/16/21 06:59 18:59 06:59 Intake Total 576 Output Total 900 Balance -900 576 Weight 184 kg 184 kg Intake: Oral 576 Output: Urine 900 Other: Voiding Method Toilet # Voids 2 - Exam PHYSICAL EXAMINATION: Patient is lying in the bed comfortably, no acute distress, awake alert and oriented. On NC now.. HEENT: Normocephalic. Neck is supple. Pupils reactive. Nostrils clear. Oral cavity is moist. Neck reveals no JVD, carotid bruits, or thyromegaly. CHEST EXAMINATION: Trachea is central. Symmetrical expansion. Bilateral diminished air entry and scattered coarse sounds.. Right basilar crackles. CARDIAC: Normal S1, S2 with no gallops. No murmurs ABDOMEN: Soft. Bowel sounds normal. No organomegaly. No abdominal bruits. Extremities: Bilateral lower extremity trace edema. No clubbing or cyanosis Neurologically awake, alert, oriented x3 with well-coordinated movements. No focal deficits noted Skin: No rash or skin lesions. Psychiatric: Coperative. Nonsuicidal Musculoskeletal: No joint swelling or deformity. Normal range of motion. - Labs CBC & Chem 7: 04/16/21 08:24 04/16/21 07:47 Labs: Abnormal Lab Results - Last 24 Hours (Table) 04/15/21 04/15/21 04/15/21 Range/Units 06:14 06:14 11:31 D-Dimer 3.91 H (<0.60) mg/L FEU Chloride 88 L (98-107) mmol/L Carbon Dioxide 47 H* (22-30) mmol/L BUN 19 H (7-17) mg/dL Glucose 100 H (74-99) mg/dL POC Glucose (mg/dL) 115 H (75-99) mg/dL Lactate Dehydrogenase 747 H (313-618) U/L C-Reactive Protein 7.9 H (<1.0) mg/dL 12/08/21 12/08/21 Range/Units 16:44 20:17 D-Dimer (<0.60) mg/L FEU Chloride (98-107) mmol/L Carbon Dioxide (22-30) mmol/L BUN (7-17) mg/dL Glucose (74-99) mg/dL POC Glucose (mg/dL) 164 H 223 H (75-99) mg/dL Lactate Dehydrogenase (313-618) U/L C-Reactive Protein (<1.0) mg/dL Assessment and Plan Assessment: Acute hypoxic and hypercapnic respiratory failure secondary to COVID-19 pneumonia requiring nonrebreather on admission. Pulse ox was 57% on room air on admission. Currently on 5 L via nasal cannula. Acute COVID-19 pneumonia. Symptoms for the past 5 days. Patient is not vaccinated. Elevated troponin level likely due to demand mismatch. Acute CHF with preserved EF. Morbid obesity BMI 72.3 Obesity hypoventilation syndrome with suspected chronic hypoxemia. Currently not on oxygen at home. Chronic bilateral lower extremity edema DVT prophylaxis. Plan: Patient will be continued on oxygen supplementation via nasal cannula.. Currently at 6 L. Titrate down below 5 L. BiPAP support as needed. Continue with the Decadron, Lovenox and multivitamins. Patient was on daily IV Lasix. Changed to by mouth 40 mg twice daily. Pulmonary is on board. Cardiology was consulted due to elevated troponin level. 2-D echo cardiac was ordered. Showed normal EF. Currently patient denied any chest pain. Continue to follow closely and prognosis is guarded at this time. Time with Patient: Greater than 30
[2021-04-16 11:51] LABS: Glucose,Whole Blood 106 mg/dL (75-99)
--- NOTE | 2021-04-16 13:51 | P.PN ---
Subjective Progress Note Date: 04/16/21 Principal diagnosis: CoVID pneumonia The patient is seen today 04/16/2021 in follow-up on the selective care unit. She is currently sitting up in bed. Awake and alert in no acute distress. She is maintaining O2 saturations in the low 90s on 4 L of nasal cannula. She does utilize BiPAP in the evening. She is anxious to go home. She denies any worsening shortness of breath, cough or congestion. White count 3.9. Hemoglobin 18.1. D-dimer 3.17. Sodium 140. Potassium 5.1. Creatinine 0.54. LDH 1024. C-reactive protein 5.5. She is continued on Decadron, Lovenox, vit clark supplements. Objective - Vital Signs Vital signs: Vital Signs Temp 98.0 F 04/16/21 12:00 Pulse 65 04/16/21 12:00 Resp 16 04/16/21 12:00 BP 125/66 04/16/21 12:00 Pulse Ox 94 L 04/16/21 12:00 Intake & Output 04/15/21 04/16/21 04/16/21 18:59 06:59 18:59 Intake Total 576 480 Balance 576 480 Weight 184 kg 176 kg Intake: Oral 576 480 Other: Voiding Method Toilet - Exam GENERAL EXAM: Alert, very pleasant, 60-year-old morbidly obese female, on 4 L of oxygen, breathing comfortably, comfortable in no apparent distress. HEAD: Normocephalic/atraumatic. EYES: Normal reaction of pupils, equal size. Conjunctiva pink, sclera white. NOSE: Clear with pink turbinates. THROAT: No erythema or exudates. NECK: No masses, no JVD, no thyroid enlargement, no adenopathy. CHEST: No chest wall deformity. Symmetrical expansion. LUNGS: Equal air entry with minor crackles at the bases CVS: Regular rate and rhythm, normal S1 and S2, no gallops, no murmurs, no rubs ABDOMEN: Soft, nontender. No hepatosplenomegaly, normal bowel sounds, no guarding or rigidity. EXTREMITIES: No clubbing, trace pretibial edema, no cyanosis, 2+ pulses and upper and lower extremities. MUSCULOSKELETAL: Muscle strength and tone normal. SPINE: No scoliosis or deformity SKIN: No rashes CENTRAL NERVOUS SYSTEM: No focal deficits, tone is normal in all 4 extremities. PSYCHIATRIC: Alert and oriented -3. Appropriate affect. Intact judgment and insight. - Labs CBC & Chem 7: 04/16/21 08:24 04/16/21 07:47 Labs: Abnormal Lab Results - Last 24 Hours (Table) 04/15/21 04/15/21 04/16/21 Range/Units 16:44 20:17 07:47 RBC (3.80-5.40) m/uL Hgb (11.4-16.0) gm/dL Hct (34.0-46.0) % MCHC (31.0-37.0) g/dL RDW (11.5-15.5) % Plt Count (150-450) k/uL Lymphocytes # (1.0-4.8) k/uL D-Dimer 3.72 H (<0.60) mg/L FEU Chloride (98-107) mmol/L Carbon Dioxide (22-30) mmol/L BUN (7-17) mg/dL POC Glucose (mg/dL) 164 H 223 H (75-99) mg/dL AST (14-36) U/L ALT (4-34) U/L Lactate Dehydrogenase (313-618) U/L C-Reactive Protein (<1.0) mg/dL Albumin (3.5-5.0) g/dL 04/16/21 04/16/21 04/16/21 Range/Units 07:47 08:24 11:49 RBC 6.52 H (3.80-5.40) m/uL Hgb 18.1 H (11.4-16.0) gm/dL Hct 60.8 H* (34.0-46.0) % MCHC 29.7 L (31.0-37.0) g/dL RDW 16.0 H (11.5-15.5) % Plt Count 121 L (150-450) k/uL Lymphocytes # 0.6 L (1.0-4.8) k/uL D-Dimer (<0.60) mg/L FEU Chloride 94 L (98-107) mmol/L Carbon Dioxide 39 H (22-30) mmol/L BUN 22 H (7-17) mg/dL POC Glucose (mg/dL) 106 H (75-99) mg/dL AST 80 H (14-36) U/L ALT 67 H (4-34) U/L Lactate Dehydrogenase 1024 H (313-618) U/L C-Reactive Protein 5.4 H (<1.0) mg/dL Albumin 3.0 L (3.5-5.0) g/dL Assessment and Plan Assessment: 1 Acute hypoxic respiratory failure related to acute COVID-19 related pneumonia. Patient presented to the hospital with a 5 day history of symptoms, and she is not vaccinated against COVID-19. 2 Suspect a component of chronic hypoxic respiratory failure related to obstructive sleep apnea and obesity hypoventilation syndrome, with chronic lower extremity edema 3 Metabolic alkalosis, likely chronic 4 Chronic lower extremity edema 5 Morbid obesity with BMI of 73 kg/m with typical features of symptomatic obstructive sleep apnea 6 Elevated troponin without any acute ischemic changes, please refer to cardiology consultation 7 Preserved left ventricular ejection fraction 8 Chronic hypersomnia related to obstructive sleep apnea 9 Elevated d-dimer, without CTA evidence of pulmonary embolism although this was a suboptimal study 10 Acute exacerbation of CHF, diastolic 11 Increased inflammatory markers related to viral pneumonia, improving Plan: The patient was seen and evaluated today Stable and on 4 L nasal cannula She is quite anxious to go home Arrange for home oxygen Follow-up in the office in 3-4 weeks Follow-up closely with her PCP Complete a 10 day course of Decadron I, the cosigning physician, performed a history & physical examination of the patient. Lungs sounds faint crackles in the posterior bases. Maintaining O2 saturations in the 90s on 4 L/m per nasal cannula. I discussed the assessment a nd plan of care with my nurse practitioner, Leola Corley. I attest to the above note as dictated by her.
[2021-04-16 17:12] VITALS: BP 128/65; PULSE 73; RESP 18; TEMP 97.1
== END 2021-04-16 17:41 | disposition home or self-care (01) | DRG 177 ==
LOC: EC 12:02 → 3SCARD 15:40
PROVIDERS: ADMIT Internal Medicine; ATTEND Internal Medicine
DX: U07.1 COVID-19 (principal); I50.33 Acute on chronic diastolic (congestive) heart failure; I21.A1 Myocardial infarction type 2; J12.82 Pneumonia due to coronavirus disease 2019; J96.21 Acute and chronic respiratory failure with hypoxia; J96.22 Acute and chronic respiratory failure with hypercapnia; E66.2 Morbid (severe) obesity with alveolar hypoventilation; E87.3 Alkalosis; Z68.45 Body mass index [BMI] 70 or greater, adult; W19.XXXA Unspecified fall, initial encounter; G47.33 Obstructive sleep apnea (adult) (pediatric); I11.0 Hypertensive heart disease with heart failure; I27.29 Other secondary pulmonary hypertension; I27.81 Cor pulmonale (chronic); Z79.899 Other long term (current) drug therapy; Y92.002 Bathroom of unspecified non-institutional (private) residence as the place of occurrence of the external cause; Z82.5 Family history of asthma and other chronic lower respiratory diseases; Z80.9 Family history of malignant neoplasm, unspecified; Z87.891 Personal history of nicotine dependence
CPT/HCPCS: 36415; 36600; 71045; 71275; 80048; 80053; 82805; 83605; 83615; 83880; 84145; 84484; 85025; 85379; 85610; 85730; 86140; 87635; 93005; 93308; 94640; 94660; 99291